=== PATIENT | female | born 1975 | race Caucasian/White ===

== ENCOUNTER 2019-10-18 17:32 | Emergency (ER) | payer OTHER, SELFPAY ==
[2019-10-18 17:49] VITALS: BP 132/79; PULSE 92; RESP 16; TEMP 37.1; O2SAT 100
--- NOTE | 2019-10-18 18:02 | ED.WOUNDLAC ---
HPI - Wound/Laceration General Chief Complaint: Wound/Laceration Stated Complaint: right toe injury History of Present Illness HPI narrative: This is a 44 year old female that comes in because she dropped a knife on her foot and she is not for sure if she is going to need stitches or not. Patient foot currently is not having any bleeding . Patient states that she dropped the knife 1 hour ago and she want to make sure that it is taken care of due to know she had beef blood inside of her and she wants to make sure that she does not get a infection Related Data Home Medications Medication Instructions Recorded Confirmed bupropion HCl 300 mg PO DAILY 10/18/19 10/18/19 fluticasone propionate 2 spray INTRANASAL DAILY 10/18/19 10/18/19 lamotrigine 100 mg BID 10/18/19 10/18/19 lisinopril-hydrochlorothiazide 1 tablet DAILY 10/18/19 10/18/19 Allergies Allergy/AdvReac Type Severity Reaction Status Date / Time adhesive Allergy Mild Rash Verified 10/18/19 18:14 Cat Dander Allergy Unknown Watery Eye Uncoded 10/18/19 17:51 Review of Systems Review of Systems: Narrative: CONSTITUTIONAL: Denies fever, chills, or sweats. EYES: Denies visual changes, redness, or discharge. ENT: Denies rhinorrhea, congestion, sore throat, or otalgia. CARDIOVASCULAR:Denies chest pain, palpitations, or edema. RESPIRATORY: Denies cough or dyspnea. GASTROINTESTINAL: Denies abdominal pain, nausea, vomiting, or diarrhea. GENITOURINARY: Denies dysuria or hematuria. SKIN:[Denies rash or itching. laceration of of the base of right foot. MUSCULOSKELETAL:Denies back pain, joint pain, or myalgia. NEUROLOGIC: Denies headache, numbness, or weakness. PSYCHIATRIC:Denies anxiety or depression PMFSH Social History Social History Gender identity (if verbalized by the patient): Female Comments At time as signature, I have reviewed and agree with nursing past medical, social, surgical and family history. Please see nursing chart for further information. There is no relevant family history pertinent to the presenting complaint. Exam Narrative: Exam Narrative: GENERAL:Well-appearing, well-nourished, and in no acute distress. HEAD:Normocephalic, atraumatic. EYES: PERRLA and EOMI. ENT: Nares clear, no rhinorrhea or epistaxis. Mucous membranes moist. NECK: Supple. CHEST: Clear to auscultation. No respiratory distress. HEART: Regular rate and rhythm. No murmur heard. Normal peripheral pulses. ABDOMEN: Soft, nontender, nondistended, normal active bowel sounds. EXTREMITIES: Normal range of motion. No edema. SKIN: Warm, dry, no rash. laceration approx 1 cm at the base of the right foot with no width noted no bleeding NEURO: No focal deficits. Alert and oriented x3. Course Vital Signs Vital signs: Vital Signs Temperature 98.7 F 10/18/19 17:49 Pulse Rate 92 10/18/19 17:49 Respiratory Rate 16 10/18/19 17:49 Blood Pressure 132/79 10/18/19 17:49 Pulse Oximetry 100 10/18/19 17:49 Temperature 98.7 F 10/18/19 17:49 Pulse Rate 92 10/18/19 17:49 Respiratory Rate 16 10/18/19 17:49 Blood Pressure 132/79 10/18/19 17:49 Pulse Oximetry 100 10/18/19 17:49 Procedures Laceration Laceration 1: Date: 10/18/19 Site: lower extremity Side (If applicable): right Size (cm): 1 Description: linear ====== Skin Level ====== Skin layer closed with: dermabond ====== Subcutaneous Layer ====== ====== Muscle Layer ====== ====== Tendon Layer ====== Dressing: Patient tolerated well and no bleeding noted. Discharge Plan Discharge Clinical Impression: Laceration Patient Disposition: Home, Self-Care Condition: Stable Instructions: Antibiotic Form, Laceration (ED), Puncture Wound in the Foot (ED) Additional Instructions: Do not get you wound wet for 48 hours or 2 days. Please make sure you take all the medication that was ordered for you follow the direction on the me
[2019-10-18] MEDS: TETANUS,DIPHTHERIA,AC PERTUSSIS ADULT (0.5 ML) BOOSTRIX IM (18:07)
== END 2019-10-18 18:23 | disposition home or self-care (01) ==
PROVIDERS: Emergency Provider Nurse Practitioner Family; PCP Family Medicine
DX: S91.311A Laceration without foreign body, right foot, initial encounter (principal); W26.0XXA Contact with knife, initial encounter; Z23 Encounter for immunization
CPT/HCPCS: 12001; 90471; 90715; 99213; G0463

== ENCOUNTER 2020-03-25 17:57 | Emergency (ER) | payer OTHER, SELFPAY ==
[2020-03-25 18:11] VITALS: BP 128/80; PULSE 99; RESP 20; TEMP 37.2; O2SAT 99
--- NOTE | 2020-03-25 18:36 | ED.WOUNDLAC ---
HPI - Wound/Laceration General Chief Complaint: Wound/Laceration Stated Complaint: Head injury Time Seen by Provider: 03/25/20 18:04 Source: patient Mode of arrival: ambulatory Limitations: no limitations History of Present Illness HPI narrative: 45-year-old female presents to [facility] with complaints of laceration to her scalp which occurred 1 hour ago. Patient reports that she was bending over picking up something off of the ground when she stood back up hitting her head on a concrete countertop. Patient reports that her tetanus shot was within the past 5 years. Patient denies loss of consciousness, blurred vision or vomiting. Patient does complain of mild headache. Onset (ago): hour(s) (1) Location: scalp Patient tetanus UTD: Yes Context: accidental Associated symptoms: pain Related Data Home Medications Medication Instructions Recorded Confirmed bupropion HCl 300 mg PO DAILY 10/18/19 03/25/20 fluticasone propionate 2 spray INTRANASAL DAILY 10/18/19 03/25/20 lamotrigine 100 mg BID 10/18/19 03/25/20 hydrochlorothiazide 12.5 mg PO DAILY 03/25/20 03/25/20 latanoprost 1 drp OPHTHALMIC (EYE) DAILY 03/25/20 03/25/20 lisinopril 10 mg PO DAILY 03/25/20 03/25/20 omeprazole 20 mg PO DAILY 03/25/20 03/25/20 Allergies Allergy/AdvReac Type Severity Reaction Status Date / Time adhesive Allergy Mild Rash Verified 03/25/20 18:24 Cat Dander Allergy Unknown Watery Eye Uncoded 10/18/19 17:51 Review of Systems Review of Systems: All systems reviewed & are unremarkable except as noted in HPI and below Constitutional: Constitutional: Denies chills, Denies fever(s) and Denies weakness Eyes: Eyes: Denies change in vision and Denies photophobia Respiratory: Respiratory: Denies cough and Denies dyspnea Gastrointestinal: Gastrointestinal: Denies abdominal pain, Denies diarrhea and Denies vomiting Integumentary/Breasts: Comments: Laceration to scalp Neurologic: Denies vertigo, Denies syncope, Reports headache(s), Denies focal weakness, Denies numbness and Denies weakness PMFSH Social History Social History Gender identity (if verbalized by the patient): Female Exam Const: General: healthy appearing, no acute distress and alert Orientation/consciousness: patient oriented x3 Eyes: Conjunctivae: conjunctivae normal Pupils: Equal, round and reactive pupils present EOM: EOMs intact bilaterally Direct Ophthalmoscopy: No photophobia Neck: Neck: normal visual inspection Resp: Effort & Inspection: normal respiratory effort Auscultation: clear to auscultation bilaterally Cardio: Rate: regular rate, not bradycardic and not tachycardic Rhythm: regular rhythm and regular rhythm Skin: General skin exam: normal color, no jaundice and no pallor Rashes: no rashes Other: 1 cm superficial laceration noted to left side of scalp. There is scant amount of bleeding noted. There is no gaping laceration, swelling, bruising, erythema, signs of infection or necrotic tissue noted. Neuro: General: patient oriented x3, moves all extremities and no meningeal signs Speech: normal speech Gait exam (Neuro): Normal gait present Extrem: General: normal to inspection Psych: Mental Status: mental status grossly normal Affect: normal affect Attitude: cooperative Thought content: Yes Normal thought content present Course Vital Signs Vital signs: Vital Signs Temperature 37.2 C 03/25/20 18:11 Pulse Rate 99 03/25/20 18:11 Respiratory Rate 03/25/20 18:11 Blood Pressure 128/80 03/25/20 18:11 Pulse Oximetry 99 03/25/20 18:11 Temperature 37.2 C 03/25/20 18:11 Pulse Rate 99 03/25/20 18:11 Respiratory Rate 03/25/20 18:11 Blood Pressure 128/80 03/25/20 18:11 Pulse Oximetry 99 03/25/20 18:11 Procedures Laceration Laceration 1: Date: 03/25/20 Time: 18:39 Site: scalp (left side) Side (If applicable): left Size (cm)
== END 2020-03-25 18:46 | disposition home or self-care (01) ==
PROVIDERS: Emergency Provider Nurse Practitioner Family; PCP Family Medicine
DX: S01.01XA Laceration without foreign body of scalp, initial encounter (principal); W22.8XXA Striking against or struck by other objects, initial encounter
CPT/HCPCS: 12001; 99212; G0463

== ENCOUNTER 2020-03-31 16:14 | Emergency (ER) | payer OTHER, SELFPAY ==
--- NOTE | 2020-03-31 16:17 | ED.WOUNDLAC ---
HPI - Wound/Laceration General Chief Complaint: Wound/Laceration Stated Complaint: staple removal Time Seen by Provider: 03/31/20 16:20 Source: patient and RN notes reviewed Mode of arrival: ambulatory Limitations: no limitations History of Present Illness HPI narrative: Referral female presents for staple removal. 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 Reports she had 1 staple placed. She denies any complications, bleeding, irritation, redness, pain, drainage. Denies headache, nausea, vomiting, vision disturbance. Related Data Home Medications Medication Instructions Recorded Confirmed bupropion HCl 300 mg PO DAILY 10/18/19 03/25/20 fluticasone propionate 2 spray INTRANASAL DAILY 10/18/19 03/25/20 lamotrigine 100 mg BID 10/18/19 03/25/20 hydrochlorothiazide 12.5 mg PO DAILY 03/25/20 03/25/20 latanoprost 1 drp OPHTHALMIC (EYE) DAILY 03/25/20 03/25/20 lisinopril 10 mg PO DAILY 03/25/20 03/25/20 omeprazole 20 mg PO DAILY 03/25/20 03/25/20 Allergies Allergy/AdvReac Type Severity Reaction Status Date / Time adhesive Allergy Mild Rash Verified 03/25/20 18:24 Cat Dander Allergy Unknown Watery Eye Uncoded 10/18/19 17:51 Review of Systems Review of Systems: Narrative: CONSTITUTIONAL: Denies malaise, chills, sweats, or fever. EYES: Denies visual changes, SKIN: Reports stable on the top of her head NEUROLOGIC: Denies headache. All systems reviewed & are unremarkable except as noted in HPI and below PMFSH Social History Social History Gender identity (if verbalized by the patient): Female Comments At time of signature, agree with nursing past medical, surgical, social and family history. There is no relevant family history pertinent to the presenting complaint Exam Narrative: Exam Narrative: GENERAL: Well-appearing, well-nourished, and in no acute distress. HEAD: Normocephalic. Intact staple noted to the superior central parietal area EYES: PERRLA, conjunctivae clear, and EOMI. NECK: Supple. CHEST: No respiratory distress. Speaks in full sentences. HEART: Regular rate and rhythm. SKIN: Warm, dry, no rash. Intact staple noted to the superior central parietal area without surrounding erythema, edema, induration, no tenderness, wound is very well approximated NEURO: Alert and oriented x3. PSYCH: Normal mood and affect Course Course Emergency Course: Patient is aware of diagnosis, understands and agrees to treatment plan. Anticipatory guidance given. Patient agrees to follow-up as directed and is aware of reasons to seek care at the emergency department. Portions of this record may have been created with voice recognition software Vital Signs Vital signs: Vital Signs Temperature 97.9 F 03/31/20 16:21 Pulse Rate 91 03/31/20 16:21 Respiratory Rate 20 03/31/20 16:21 Blood Pressure 124/77 03/31/20 16:21 Pulse Oximetry 99 03/31/20 16:21 Temperature 97.9 F 03/31/20 16:21 Pulse Rate 91 03/31/20 16:21 Respiratory Rate 20 03/31/20 16:21 Blood Pressure 124/77 03/31/20 16:21 Pulse Oximetry 99 03/31/20 16:21 Reviewed. MDM - Wound/Laceration MDM Narrative Medical decision making narrative: Verbal consent was obtained. Wound well approximated, no erythema, induration, or discharge noted. 1 staple completely removed in a sterile fashion. Patient tolerated procedure well, no complications. Patient advised to look for and return for any signs of infection such as redness, swelling, discharge, or worsening pain. Critical Care Time Critical Care Time Critical Care Time: No Discharge Plan Discharge Clinical Impression: Encounter for staple removal Patient Disposition: Home, Self-Care Condition: Stable Instructions: Staple Care (ED) Additional Instructions: AFTER the staple is removed: Clean your wound as directed. Carefully wash your wo
[2020-03-31 16:21] VITALS: BP 124/77; PULSE 91; RESP 20; TEMP 36.6; O2SAT 99
== END 2020-03-31 16:33 | disposition home or self-care (01) ==
PROVIDERS: Emergency Provider Nurse Practitioner; PCP Family Medicine
DX: S01.01XD Laceration without foreign body of scalp, subsequent encounter (principal); W22.09XD Striking against other stationary object, subsequent encounter; Z86.73 Personal history of transient ischemic attack (TIA), and cerebral infarction without residual deficits; E78.00 Pure hypercholesterolemia, unspecified; I10 Essential (primary) hypertension; K21.9 Gastro-esophageal reflux disease without esophagitis; M19.90 Unspecified osteoarthritis, unspecified site; F31.9 Bipolar disorder, unspecified
CPT/HCPCS: 99211; G0463

== ENCOUNTER 2021-02-07 12:30 | Outpatient (RCR) | payer OTHER, SELFPAY ==
--- NOTE | 2020-12-31 15:53 | PTOPEVAL ---
PHYSICAL THERAPY EVALUATION AND PLAN OF CARE 12-31-20 Thank you for referring Brianda Mahan to [facility] for the diagnosis of lumbago/back pain. She is scheduled to be seen for therapy? 1-2 x/week for 5 weeks. Please review, sign, date and return this plan of care RIVER. I agree with and certify that the following plan of care is medically necessary. Referring Physician Date Attending Provider: MARLEY Avilez PT Outpatient Evaluation Document 12/31/20 14:56 KYMBERLY (Rec: 12/31/20 15:53 KYMBERLY [id number]) Past Medical History Neurological History Hx Migraine Yes: 1-2x/month, last half to all day Hx Transient Ischemic Attacks (TIA) Yes Cardiovascular History Hx Hypertension Yes: meds Respiratory History Hx Respiratory Disorders No Significant History Gastrointestinal History Hx Appendectomy Yes Hx Gastroesophageal Reflux Disease Yes Genitourinary History Hx Genitourinary Disorders No Significant History Musculoskeletal History Hx Arthritis Yes: back Hx Back Pain Yes Hx Fractures Yes: right foot Hx Orthopedic Surgery Yes: right 3rd toe and right heel Hx Other Musculoskeletal Disorders Yes: cervical pain and stenosis Hematological History Hx Hematological Disorders No Significant History Endocrine History Hx Endocrine Disorders No Significant History HEENT History Hx HEENT Disorders No Significant History Integumentary History Hx Skin Disorders No Significant History Reproductive History Hx Section Yes: x 3 Hx Other Reproductive Disorders Yes: ovary removed Psychosocial History Hx Bipolar Disorder Yes Hx Depression Yes Pain History History of Any Previous or Ongoing No Significant History Instance of Pain Anesthesia History Hx Anesthesia Reactions No Significant History Other History Hx Other Medical Conditions Yes: have had covid vaccine Evaluation Information Problem Diagnosis low back pain Onset one year Subjective Information have been going to pain Query Text:As Reported By Patient/ management for back pain, have Family had 3 rounds of injections-- first 2 sets helped pain and last one, did not help pain; told her to try PT, then may have to refer to surgeon; Diagnostic Tests MRI For This Problem Yes: years ago--per pt:disc problems Prior Level of Function Activity Level (Last 3 Months) 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
--- NOTE | 2021-02-07 13:20 | PTOPEVAL ---
PHYSICAL THERAPY DISCHARGE 02-07-21 Refer to the clinical summary below, for her status today, compared to the initial evaluation. The goals were partially achieved. Discharge PT services. Thank you for referring Brianda Mahan to [facility] Please review, sign, date and return this discharge RIVER. I agree with and certify that the following plan of care is medically necessary. Referring Physician Date Attending Provider: MARLEY Avilez Document 02/07/21 12:30 KYMBERLY (Rec: 02/07/21 13:20 KYMBERLY [id number]) Assessment Status Discharge Subjective Information Brianda reports: back is doing Query Text:As Reported By Patient/ better; if hold trunk tight Family and not twist pain is better; doing all the exercises at home; agree to discharge from PT. Pain Assessment Timing of Pain Assessment Timing of Pain Assessment Assessment Pain Scale Pain Scale Used Numeric (1 - 10) Self Report Pain Assessment Bilateral Spine, Lumbar Reported Pain Level 0 Pain Description Aching Radicular Pain Location achey if stand too long; Pain Frequency Chronic,Intermittent Other Pain Description jabs sometimes when walking or roll over in bed, last few seconds only Lowest Pain Intensity 0 Greatest Pain Intensity 2 Pain Aggravating Factors Walking Other Pain Aggravating Factors sometimes when walking; standing Additional Pain Comments sleep on couch, hurts back- son jumps on the couch on her sometimes; Pain Score Pain Score 0: Self Report Additional Pain Score Comments Oswestry self assessment functional score of 12% limitation in activity level; educated and performed log rolling to get up from supine position; have home stim unit, used a few times and it helps; have problems with her son jumping on her, playing rough; and when pt sleeping, he comes in and sleeps with her- kicking her in back, rolling onto her; she has to lift, pull him out of bed to return to his own bed. Interventions Used Interventions Used By Clinicians Education Pain Relief Interventions Used By Checo Morton
== END 2021-02-09 15:24 | disposition home or self-care (01) ==
LOC: ANHPT 12:30
PROVIDERS: PCP Family Medicine; Visit Provider Nurse Practitioner Family
DX: M54.5 Low back pain (principal)
CPT/HCPCS: 97110; 97140; 97161

== ENCOUNTER 2021-06-05 15:27 | Emergency (ER) | payer OTHER, SELFPAY ==
[2021-06-05 15:36] VITALS: BP 118/49; PULSE 90; RESP 18; TEMP 36.9; O2SAT 99
--- NOTE | 2021-06-05 15:43 | ED.EYEPROB ---
HPI - Eye Problem General Chief complaint: Eye Problems Stated complaint: Lt Eye Irritation Time Seen by Provider: 06/05/21 15:44 Source: patient, RN notes reviewed and old records reviewed Mode of arrival: ambulatory Limitations: no limitations History of Present Illness HPI Narrative: 46-year-old female presents to the [facility] with complaints of left eye redness and drainage, crusted over this morning. Does not wear contact lenses. States that she does wear glasses. Denies any trauma. Denies change in vision or blurry vision. No sinus symptoms. No fevers. MD chief complaint: eye redness Related Data Home Medications Medication Instructions Recorded Confirmed bupropion HCl 300 mg PO DAILY 10/18/19 06/05/21 lamotrigine 100 mg BID 10/18/19 06/05/21 hydrochlorothiazide 12.5 mg PO DAILY 03/25/20 06/05/21 lisinopril 10 mg PO DAILY 03/25/20 06/05/21 omeprazole 20 mg PO DAILY 03/25/20 06/05/21 Allergies Allergy/AdvReac Type Severity Reaction Status Date / Time adhesive Allergy Mild Rash Verified 06/05/21 15:29 Cat Dander Allergy Mild Watery Eye Uncoded 06/05/21 15:29 Review of Systems Review of Systems: All systems reviewed & are unremarkable except as noted in HPI and below Constitutional: Constitutional: Reports no additional constitutional complaints, Denies chills and Denies fever(s) Eyes: Eyes: Reports as per HPI, Denies blind spots, Denies blurry vision, Denies change in vision, Reports eye discharge, Reports itchy eyes, Reports requires corrective lenses (Does not wear contact lenses) and Denies photophobia ENT: Reports system reviewed and no additional complaints, except as documented Cardiovascular: Cardiovascular: Reports no additional cardiovascular complaints Respiratory: Respiratory: Reports no additional respiratory complaints Musculoskeletal: Musculoskeletal: Reports no additional musculoskeletal complaints Integumentary/Breasts: Skin/Breast: Reports system reviewed and no additional complaints, except as docu Neurologic: Reports system reviewed and no additional complaints, except as documented Psychiatric: Psychiatric: Reports no additional psychiatric complaints Allergic/Immunologic: Allergic/Immunologic: Reports no additional allergic/immunologic complaints PMFSH Past Medical History Medical History (Updated 06/05/21 @ 17:01 by Keila Gonzales) Depression H/O gastroesophageal reflux (GERD) Hypertension Social History Social History Gender identity (if verbalized by the patient): Female Comments At the time of my signature, I reviewed and agree with the nursing past medical, surgical, social, and family history. There is no relevant family history pertinent to the patient complaint. Exam Const: General: healthy appearing, no acute distress and alert Nutritional Appearance: well nourished Orientation/consciousness: patient oriented x3 Limitations: no limitations HENMT: Head: normal to inspection Ears: external ears normal, TM's normal bilaterally and EAC's normal Eyes: Conjunctivae: conjunctival abnormality left conjunctival injection localized (Lower lid) and discharge mucoid; without subconjunctival hemmorhages Pupils: Equal, round and reactive pupils present EOM: EOMs intact bilaterally Direct Ophthalmoscopy: no photophobia Neck: Neck: normal visual inspection, no lymphadenopathy and no meningeal signs Chest: Chest palpation & inspection: normal inspection of the chest Resp: Effort & Inspection: normal respiratory effort and no use of accessory muscles Auscultation: clear to auscultation bilaterally, no crackles, no rales, no rhonchi and no wheezes Cardio: Rate: regular rate Rhythm: regular rhythm Back/Spine/Pelvis: Back: no CVA tenderness Skin: General skin exam: normal color Rashes: no rashes Wounds: no wounds Neuro: General: patient oriented x3, moves all extremities, no meningeal signs and no focal motor defi
== END 2021-06-05 15:55 | disposition home or self-care (01) ==
PROVIDERS: Emergency Provider Nurse Practitioner; PCP Family Medicine
DX: H10.32 Unspecified acute conjunctivitis, left eye (principal); I10 Essential (primary) hypertension
CPT/HCPCS: 99213; G0463

== ENCOUNTER 2021-07-21 16:49 | Emergency (ER) | payer OTHER, SELFPAY ==
[2021-07-21 16:59] VITALS: BP 125/65; PULSE 85; RESP 16; TEMP 36.8; O2SAT 100
--- NOTE | 2021-07-21 17:39 | ED.EAR ---
HPI - Ear Problem General Chief complaint: Upper Respiratory Infection Stated complaint: EAR/NOSE/THROAT Source: patient and RN notes reviewed Mode of arrival: ambulatory History of Present Illness HPI Narrative: This is a 46-year-old female who presents to urgent care with complaints of right ear pain states she has had for approximately 1 week she describes the pain as ringing and congestion to her right ear. She did nothing at home to relieve her symptoms. The patient denies SOB, CP, decreased hearing, foreign body, ear discahrge, palpitation, extremity numbness, lightheadedness, dizziness, constipation, diarrhea, chills, or fever. Related Data Home Medications Medication Instructions Recorded Confirmed bupropion HCl 300 mg PO DAILY 10/18/19 06/05/21 lamotrigine 100 mg BID 10/18/19 06/05/21 hydrochlorothiazide 12.5 mg PO DAILY 03/25/20 06/05/21 lisinopril 10 mg PO DAILY 03/25/20 06/05/21 omeprazole 20 mg PO DAILY 03/25/20 06/05/21 Allergies Allergy/AdvReac Type Severity Reaction Status Date / Time adhesive Allergy Mild Rash Verified 06/05/21 15:29 Cat Dander Allergy Mild Watery Eye Uncoded 06/05/21 15:29 Review of Systems Review of Systems: A 14 organ system Review of Systems was performed and pertinent positives included in the HPI, otherwise remaining ROS is negative. [facility] Past Medical History Medical History Depression H/O gastroesophageal reflux (GERD) Hypertension Social History Social History Gender identity (if verbalized by the patient): Female Exam Narrative: GENERAL: This is a well-nourished, well-developed patient, in no apparent distress. HEAD: normocephalic, atraumatic. EYES: PERRL. Sclera clear/white. Vision is grossly intact. EARS: External ears normal, auditory canals and, TMs normal edema with erythematous without perforation. Hearing grossly intact. NOSE: External nose normal with no obvious nasal discharge, nares without redness, no rhinorrhea. THROAT: Mucous membranes moist, posterior pharynx clear. NECK: Neck supple, non-tender without lymphadenopathy, masses or thyromegaly. CARDIOVASCULAR: Regular rate and rhythm without murmurs, gallops, or rubs. RESPIRATORY: Clear to auscultation. Breath sounds equal bilaterally. No wheezes, rales, or rhonchi. GASTROINTESTINAL: Abdomen soft, non-tender, nondistended. Bowel sounds are active. No hepato-splenomegaly, or palpable masses. No guarding. SKIN: warm, intact with no suspicious lesions or rash, good texture and turgor. NEURO: awake, alert, and oriented to person, place and time. There were no obvious focal neurologic abnormalities. Steady gait EXTREMITIES: Normal range of motion. No edema. No calf tenderness. Negative Homans sign bilaterally. BACK: Nontender without deformity or crepitance. No flank tenderness. Course Course Emergency Course: Patient treated for otitis media along with otitis externa with Augmentin and ciprofloxacin eardrops Level of Care: Express Care Visit Vital Signs Vital signs: Vital Signs Temperature 98.2 F 07/21/21 16:59 Pulse Rate 85 07/21/21 16:59 Respiratory Rate 16 07/21/21 16:59 Blood Pressure 125/65 07/21/21 16:59 Pulse Oximetry 100 07/21/21 16:59 Temperature 98.2 F 07/21/21 16:59 Pulse Rate 85 07/21/21 16:59 Respiratory Rate 16 07/21/21 16:59 Blood Pressure 125/65 07/21/21 16:59 Pulse Oximetry 100 07/21/21 16:59 Medical Decision Making Differential Diagnosis Differential Diagnosis: Otitis media versus otitis externa versus foreign body object Vital Signs Vital Signs: Vital Signs Temperature 98.2 F 07/21/21 16:59 Pulse Rate 85 07/21/21 16:59 Respiratory Rate 16 07/21/21 16:59 Blood Pressure 125/65 07/21/21 16:59 Pulse Oximetry 100 07/21/21 16:59 Temperature 98.2 F 07/21/21 16:59 Pulse Rate 85 07/21/21 16:59 Respiratory Ra
== END 2021-07-21 17:40 | disposition home or self-care (01) ==
PROVIDERS: Emergency Provider Nurse Practitioner; PCP Family Medicine
DX: H66.90 Otitis media, unspecified, unspecified ear (principal); H60.501 Unspecified acute noninfective otitis externa, right ear; K21.9 Gastro-esophageal reflux disease without esophagitis; I10 Essential (primary) hypertension; F32.A Depression, unspecified
CPT/HCPCS: 99213; G0463

== ENCOUNTER 2021-07-31 13:16 | Emergency (ER) | payer OTHER, SELFPAY ==
--- NOTE | ~2021-07-31 | CT_ITS ---
EXAMINATION: CT brain wo con DATE: 07/31/2021 13:54 INDICATION: Head injury. Headache. TECHNIQUE: Computed tomography (CT) of the head was performed without intravenous contrast. The mA wa s adjusted according to patient size. Iterative reconstruction technique was employed. The dose-lengt h product was 529.67 mGy-cm. COMPARISON: None FINDINGS: There is no intracranial hemorrhage, acute infarction, or abnormal intracranial mass lesion . The ventricles are normal in size. There is mild mucosal thickening in the ethmoid sinuses. The mas toid air cells are normal. The orbits are normal. IMPRESSION: 1. Normal brain. Reviewed, dictated and finalized at location A. CUTTER IMPRESSION: 1. Normal brain.
[2021-07-31 13:22] VITALS: BP 127/73; PULSE 106; RESP 20; TEMP 37; O2SAT 99
[2021-07-31] MEDS: KETOROLAC (*BKC) 60 MG/2 ML VIAL IM (14:55)
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
== END 2021-07-31 16:19 | disposition home or self-care (01) ==
PROVIDERS: Emergency Provider Emergency Medicine; PCP Family Medicine
DX: S00.83XA Contusion of other part of head, initial encounter (principal); R51.9 Headache, unspecified; I10 Essential (primary) hypertension; K21.9 Gastro-esophageal reflux disease without esophagitis; F32.A Depression, unspecified; Z97.5 Presence of (intrauterine) contraceptive device; W20.8XXA Other cause of strike by thrown, projected or falling object, initial encounter
CPT/HCPCS: 70450; 96372; 99284; J1100; J1885

== ENCOUNTER 2021-08-06 09:01 | Outpatient (CLI) | payer OTHER, SELFPAY ==
[2021-08-06 09:40] LABS: Basophils Percent Auto 0.3 % (0.2-1.2); Eosinophils Absolute Auto 0.6 K/mm3 (0-0.3); Eosinophils Percent Auto 9.3 % (0-4.4); Hematocrit 43.2 % (37.0-47.0); Immature Granulocyte Absolute 0.02 K/mm3 (0.00-0.031); Immature Granulocyte Percent A 0.3 % (0-0.5); Lymphocytes Absolute Auto 2.03 K/mm3 (0.9-3.2); Lymphocytes Percent Auto 33.6 % (18.3-44.2); Mean Corpuscular HGB Conc 32.4 g/dl (32-36); Mean Corpuscular Volume 92.7 fl (80-100); Mean Platelet Volume 10.1 fl (7.4-10.4); Monocytes Absolute Auto 0.5 K/mm3 (0.1-0.6); Monocytes Percent Auto 8.8 % (2.6-8.5); Neutrophils Absolute Auto 2.9 K/mm3 (1.3-6.7); Neutrophils Percent Auto 47.7 % (45.5-73.1); Platelet Count Result 283 k/mm3 (150-375); Red Blood Count 4.66 M/mm3 (4.2-5.4)
[2021-08-06 10:06] LABS: Iron 99 ug/dL (37-170)
[2021-08-06 10:15] LABS: Percent Iron Saturation 33 % (20-50)
[2021-08-06 10:17] LABS: Thyroid Stimulating Hormone 0.832 uIU/mL (0.465-4.680)
[2021-08-06 10:24] LABS: Free T4 Free Thyroxine 0.89 ng/mL (0.78-2.19)
[2021-08-09 12:03] LABS: FSH 71.5 mIU/mL (***); LH 57.6 mIU/mL (***); Progesterone 0.6 ng/mL (***); Prolactin 8.7 ng/mL (***); Triiodothyronine T3 Free 3.9 pg/mL (2.3-4.2)
[2021-08-09 15:59] LABS: DHEA-Sulfate 224 mcg/dL (19-231); Thyroid Peroxidase Antibodies <1 IU/mL (<9)
[2021-08-10 05:57] LABS: Insulin Level Total 4.4 uIU/mL (<=19.6)
[2021-08-10 08:43] LABS: Testosterone Free 2.4 pg/mL (0.1-6.4); Testosterone Total 21 ng/dL (2-45)
[2021-08-11 23:42] LABS: Estradiol, Ultrasensitive <2 pg/mL
[2021-08-12 17:55] LABS: Thyroid Stimulating Immunoglob <89 % baseline (<140)
== END 2021-08-06 09:02 | disposition home or self-care (01) ==
PROVIDERS: PCP Family Medicine; Visit Provider Internal Medicine Endocrinology, Diabetes & Metabolism
DX: R94.6 Abnormal results of thyroid function studies (principal); R53.83 Other fatigue; N92.6 Irregular menstruation, unspecified
CPT/HCPCS: 36415; 82607; 82627; 82670; 82728; 82746; 83001; 83002; 83525; 83540; 83550; 84144; 84146; 84402; 84403; 84439; 84443; 84445; 84481; 85025; 86376

== ENCOUNTER 2022-04-01 08:02 | Outpatient (CLI) | payer OTHER, SELFPAY ==
[2022-04-01 09:03] LABS: Alanine Aminotransferase 20 U/L (6-35); Alkaline Phosphatase 67 U/L (38-126); Anion Gap 6 mmol/L (8-16); Aspartate Amino Transferase 24 U/L (14-36); Bilirubin,Total 0.2 mg/dL (0.2-1.3); Blood Urea Nitrogen 17 mg/dL (7-17); Calcium 8.5 mg/dL (8.4-10.2); Carbon Dioxide 25 mmol/L (22-30); Chloride 109 mmol/L (98-107); Estimated Glomerular Filt Rate > 60; Glucose 95 mg/dL (65-110); Potassium 4.1 mmol/L (3.4-5.0); Sodium 140 mmol/L (137-145)
[2022-04-01 09:31] LABS: Thyroid Stimulating Hormone 0.887 uIU/mL (0.465-4.680)
[2022-04-01 09:55] LABS: Free T4 Free Thyroxine 0.91 ng/mL (0.78-2.19)
[2022-04-04 01:21] LABS: Thyroid Peroxidase Antibodies <1 IU/mL (<9)
[2022-04-04 12:45] LABS: Triiodothyronine T3 Free 2.8 pg/mL (2.3-4.2)
== END 2022-04-01 08:03 | disposition home or self-care (01) ==
LOC: ANHLAB 08:05
PROVIDERS: PCP Family Medicine; Visit Provider Nurse Practitioner
DX: E04.1 Nontoxic single thyroid nodule (principal)
CPT/HCPCS: 36415; 80053; 84439; 84443; 84481; 86376

== ENCOUNTER 2022-05-30 17:36 | Emergency (ER) | payer OTHER, SELFPAY ==
[2022-05-30 17:45] VITALS: BP 115/69; PULSE 90; RESP 16; TEMP 36.2; O2SAT 100
--- NOTE | 2022-05-30 18:16 | ED.URI ---
HPI - URI/Sore Throat General Chief Complaint: Upper Respiratory Infection Stated Complaint: E/N/T Time Seen by Provider: 05/30/22 18:16 Source: patient and RN notes reviewed Mode of arrival: ambulatory Limitations: no limitations History of Present Illness HPI Narrative: 47 y/o female presented for c/o sore throat since last night. States she completed a course of antibiotics for sinus infection last week but continues to cough which worsens the throat pain. Using chloraseptic spray without relief. Denies shortness of breath, wheezing, nausea, vomiting, diarrhea, fevers or chills. MD elicited complaint: cough Related Data Home Medications Medication Instructions Recorded Confirmed lamotrigine 100 mg tablet 100 mg BID 10/18/19 05/30/22 hydrochlorothiazide 12.5 mg capsule 12.5 mg PO DAILY 03/25/20 05/30/22 lisinopril 10 mg tablet 10 mg PO DAILY 03/25/20 05/30/22 latanoprost 0.005 % eye drops 1 drp EACH EYE HS 07/21/21 05/30/22 sumatriptan succinate 50 mg tablet 50 mg PO DIRECTED 07/31/21 05/30/22 fluticasone propionate 50 1 spray intranasal DIRECTED 05/30/22 05/30/22 mcg/actuation nasal spray,suspension hydroxyzine pamoate 25 mg capsule 25 mg DAILY 05/30/22 05/30/22 sertraline 50 mg tablet 50 mg DAILY 05/30/22 05/30/22 Allergies Allergy/AdvReac Type Severity Reaction Status Date / Time adhesive Allergy Mild Rash Verified 05/30/22 17:57 Cat Dander Allergy Mild Watery Eye Uncoded 05/30/22 17:57 Review of Systems Review of Systems: ROS per HPI PMFSH Past Medical History Medical History Depression H/O gastroesophageal reflux (GERD) Hypertension Social History Social History Gender identity (if verbalized by the patient): Female Exam Narrative: GENERAL: Ill-appearing, nontoxic EYES: PERRLA, conjunctivae clear ENT: Mucous membranes moist. TMs pearly banks with dull light reflex bilaterally; no tragal tenderness. Oropharynx erythematous without lesions or exudate, no drooling, no hoarseness, no trismus, uvula midline. No tripod positioning, muffled voice, soft palate or pharyngeal wall bulging NECK: Supple. No lymphadenopathy CHEST: Clear to auscultation, breath sounds equal. No wheezing, rhonchi, rales, or stridor. No respiratory distress, speaks in full sentences. HEART: Regular rate and rhythm. No murmur heard. SKIN: Warm, dry, no rash. NEURO: Alert and oriented x3. PSYCH: Normal mood and affect Course Course Emergency Course: Patient is aware of diagnosis, understands and agrees to treatment plan. Anticipatory guidance given. Patient agrees to follow-up as directed and is aware of reasons to seek care at the emergency department. Portions of this record may have been created with voice recognition software Level of Care: Express Care Visit Vital Signs Vital signs: Vital Signs Temperature 97.2 F L 05/30/22 17:45 Pulse Rate 90 05/30/22 17:45 Respiratory Rate 16 05/30/22 17:45 Blood Pressure 115/69 05/30/22 17:45 Pulse Oximetry 100 05/30/22 17:45 Oxygen Delivery Room Air 05/30/22 17:45 Temperature 97.2 F L 05/30/22 17:45 Pulse Rate 90 05/30/22 17:45 Respiratory Rate 16 05/30/22 17:45 Blood Pressure 115/69 05/30/22 17:45 Pulse Oximetry 100 05/30/22 17:45 Oxygen Delivery Room Air 05/30/22 17:45 reviewed MDM - URI/Sore Throat MDM Narrative Medical decision making narrative: Strep negative, results reviewed the patient. Advised supportive measures and signs/symptoms to go to the ER. Pt is appropriate for outpt treatment and f/u. Differential Diagnosis Differential diagnosis: Likely upper respiratory infection, sinusitis, viral infection, bronchitis and pharyngitis Lab Data Labs: Strep Screen Presumptive Negative *(Reference Range: Negative)* Discharge Plan Discharge
== END 2022-05-30 18:29 | disposition home or self-care (01) ==
PROVIDERS: Emergency Provider Nurse Practitioner Family; PCP Family Medicine
DX: J02.9 Acute pharyngitis, unspecified (principal); I10 Essential (primary) hypertension
CPT/HCPCS: 87081; 87880; 99213; G0463

== ENCOUNTER 2022-07-09 11:52 | Emergency (ER) | payer OTHER, SELFPAY ==
[2022-07-09 12:02] VITALS: BP 128/73; PULSE 76; RESP 16; TEMP 36.6; O2SAT 100
--- NOTE | 2022-07-09 12:45 | ED.GENADULT ---
HPI - General Adult General Chief complaint: Wound/Laceration Stated complaint: lacreation hand Source: patient Mode of arrival: ambulatory Limitations: no limitations History of Present Illness HPI narrative: Patient presents for evaluation of skin avulsion injuries to the left wrist that occurred around 1800 last night. She states she cut herself with a mandolin. She had challenged controlling the bleeding for about thirty minutes. She reports some sharp pain in the affected areas without numerical rating. Bleeding is controlled at this time. She denies any fever, chills, purulence from the area. No loss of range of motion. No paresthesias. She is not diabetic. She does not smoke. Last tetanus was in 2019. She is left hand dominant. Related Data Home Medications Medication Instructions Recorded Confirmed lamotrigine 100 mg tablet 100 mg BID 10/18/19 07/09/22 hydrochlorothiazide 12.5 mg capsule 12.5 mg PO DAILY 03/25/20 07/09/22 lisinopril 10 mg tablet 10 mg PO DAILY 03/25/20 07/09/22 latanoprost 0.005 % eye drops 1 drp EACH EYE HS 07/21/21 07/09/22 sumatriptan succinate 50 mg tablet 50 mg PO DIRECTED 07/31/21 07/09/22 hydroxyzine pamoate 25 mg capsule 25 mg DAILY 05/30/22 07/09/22 sertraline 50 mg tablet 50 mg DAILY 05/30/22 07/09/22 Allergies Allergy/AdvReac Type Severity Reaction Status Date / Time adhesive Allergy Mild Rash Verified 07/09/22 12:31 Cat Dander Allergy Mild Watery Eye Uncoded 07/09/22 12:31 Review of Systems Review of Systems: CONSTITUTIONAL: Denies fever, chills, or sweats. EYES: Denies visual changes, redness, or discharge. ENT: Denies rhinorrhea, congestion, sore throat, or otalgia. CARDIOVASCULAR: Denies chest pain, palpitations, or edema. RESPIRATORY: Denies cough or dyspnea. GASTROINTESTINAL: Denies abdominal pain, nausea, vomiting, or diarrhea. GENITOURINARY: Denies dysuria or hematuria. SKIN: Reports skin avulsions x 2 to the left wrist MUSCULOSKELETAL: Denies back pain, joint pain, or myalgia. NEUROLOGIC: Denies headache, numbness, dizziness, or weakness. PSYCHIATRIC: Denies anxiety or depression. [facility] Past Medical History Medical History (Updated 07/09/22 @ 12:55 by MONIE OrtizP, ) Depression H/O gastroesophageal reflux (GERD) Hypertension Surgical History Surgical History No pertinent past surgical history Family History Family History Mother Family history non-contributory Social History Social History Smoking status: Never smoker Substance use: never Gender identity (if verbalized by the patient): Female Spiritual care concerns: No Exam Narrative: GENERAL: Well-appearing, well-nourished, and in no acute distress. HEAD: Normocephalic, atraumatic. EYES: PERRLA and EOMI. ENT: Nares clear, no rhinorrhea or epistaxis. Mucous membranes moist. Oropharynx without tonsillar hypertrophy exudate or other lesions. Bilateral TMs pearly banks nonbulging NECK: Supple. No adenopathy or masses. No carotid bruits or JVD CHEST: Clear to auscultation. No respiratory distress. No wheezes rales or rhonchi HEART: Regular rate and rhythm. No murmur heard. Normal peripheral pulses. ABDOMEN: Soft, nontender, nondistended, normal active bowel sounds. EXTREMITIES: Normal range of motion. No edema. SKIN: Warm, dry, no rash. There is a dry dressing noted to the left wrist which was removed for evaluation. There is a moderate amount of sanguinous drainage shadowing on the dressing. There is a 2 x 3 mm skin avulsion noted to the left wrist and a 8 x 4 mm skin avulsion noted adjacent to that also at the left wrist. Both wound beds are pink and without evidence of infection. There is no active bleeding NEURO: No focal deficits. Alert and oriented x3. PSYCH: Normal mood and affect.
== END 2022-07-09 12:55 | disposition home or self-care (01) ==
PROVIDERS: Emergency Provider Nurse Practitioner; PCP Family Medicine
DX: S61.502A Unspecified open wound of left wrist, initial encounter (principal); W27.4XXA Contact with kitchen utensil, initial encounter; K21.9 Gastro-esophageal reflux disease without esophagitis; I10 Essential (primary) hypertension; F32.A Depression, unspecified
CPT/HCPCS: 99213; G0463

== ENCOUNTER 2022-09-25 17:27 | Emergency (ER) | payer OTHER, SELFPAY ==
[2022-09-25 17:51] VITALS: BP 109/48; PULSE 114; RESP 20; TEMP 37.8; O2SAT 99
--- NOTE | 2022-09-25 18:37 | ED.URI ---
HPI - URI/Sore Throat General Chief Complaint: Upper Respiratory Infection Stated Complaint: Ear/Nose/ Throat History of Present Illness HPI Narrative: 47-year-old female presenting for complaint of sore throat, body aches, fatigue, and states she feels like she is in a fog. Symptoms started today. endorses her son is sick with similar symptoms over last few days. She denies dizziness, tinnitus, nausea, vomiting, fevers or chills. She is not taking anything for symptoms. Related Data Home Medications Medication Instructions Recorded Confirmed lamotrigine 100 mg tablet 100 mg BID 10/18/19 09/25/22 hydrochlorothiazide 12.5 mg capsule 12.5 mg PO DAILY 03/25/20 09/25/22 lisinopril 10 mg tablet 10 mg PO DAILY 03/25/20 09/25/22 latanoprost 0.005 % eye drops 1 drp EACH EYE HS 07/21/21 09/25/22 sumatriptan succinate 50 mg tablet 50 mg PO DIRECTED 07/31/21 09/25/22 hydroxyzine pamoate 25 mg capsule 25 mg DAILY 05/30/22 09/25/22 gabapentin 300 mg capsule 300 mg DIRECTED 09/25/22 09/25/22 Allergies Allergy/AdvReac Type Severity Reaction Status Date / Time adhesive Allergy Mild Rash Verified 07/09/22 12:31 Cat Dander Allergy Mild Watery Eye Uncoded 07/09/22 12:31 Review of Systems Review of Systems: CONSTITUTIONAL: Reports body aches, denies fever, chills, or sweats. EYES: Denies visual changes, redness, or discharge. ENT: Reports sore throat denies rhinorrhea, congestion, or otalgia. CARDIOVASCULAR: Denies chest pain, palpitations, or edema. RESPIRATORY: Denies dyspnea. GASTROINTESTINAL: Denies abdominal pain, nausea, vomiting, or diarrhea. SKIN: Denies rash, itching, or wounds. MUSCULOSKELETAL: Denies back pain, joint pain, or myalgia. [facility] Past Medical History Medical History Depression H/O gastroesophageal reflux (GERD) Hypertension Surgical History Surgical History No pertinent past surgical history Family History Family History Mother Family history non-contributory Social History Social History Smoking status: Never smoker Substance use: never Gender identity (if verbalized by the patient): Female Spiritual care concerns: No Exam Narrative: GENERAL: Ill-appearing, no acute distress. EYES: conjunctivae clear ENT: Mucous membranes moist. TM pearly banks with normal light reflex bilaterally; no tragal tenderness. Oropharynx erythematous. Tonsils enlarged 2+ with exudate. No drooling, no hoarseness, no trismus, uvula midline. No tripod positioning, hot potato voice, or soft palate swelling. NECK: Supple. No lymphadenopathy CHEST: Clear to auscultation, breath sounds equal. No respiratory distress, speaks in full sentences. HEART: Regular rate and rhythm. No murmur heard. SKIN: Warm, dry, no rash. NEURO: Alert and oriented x3. Course Course Emergency Course: Patient is aware of diagnosis, understands and agrees to treatment plan. Anticipatory guidance given. Patient agrees to follow-up as directed and is aware of reasons to seek care at the emergency department. Portions of this record may have been created with voice recognition software Level of Care: Express Care Visit Vital Signs Vital signs: Vital Signs Temperature 100.0 F H 09/25/22 17:51 Pulse Rate 114 H 09/25/22 17:51 Respiratory Rate 20 09/25/22 17:51 Blood Pressure 109/48 L 09/25/22 17:51 Pulse Oximetry 99 09/25/22 17:51 Oxygen Delivery Room Air 09/25/22 17:51 Temperature 100.0 F H 09/25/22 17:51 Pulse Rate 114 H 09/25/22 17:51 Respiratory Rate 20 09/25/22 17:51 Blood Pressure 109/48 L 09/25/22 17:51 Pulse Oximetry 99 09/25/22 17:51 Oxygen Delivery Room Air 09/25/22 17:51 MDM - URI/Sore Throat MDM Narrative Medical decision making narrative:
== END 2022-09-25 18:54 | disposition home or self-care (01) ==
PROVIDERS: Emergency Provider Nurse Practitioner Family; PCP Family Medicine
DX: J02.0 Streptococcal pharyngitis (principal); I10 Essential (primary) hypertension; Z20.822 Contact with and (suspected) exposure to COVID-19
CPT/HCPCS: 87426; 87804; 87880; 99213; C9803; G0463

== ENCOUNTER 2023-03-16 16:36 | Outpatient (CLI) | payer OTHER, SELFPAY ==
--- NOTE | ~2023-03-16 | US_ITS ---
Thyroid ultrasound. Clinical History: Thyroid nodule Findings: Real-time sonography of the thyroid gland was performed. The right lobe measures 3.7 x 1.0 x 1.8 cm. The left lobe measures 3.1 x 1.0 x 1.5 cm. The isthmus is 2 mm in AP diameter. No signific ant thyroid nodule identified. Impression: No significant thyroid nodule identified.. Reviewed, dictated and finalized at location . Impression: No significant thyroid nodule identified..
== END 2023-03-16 16:37 | disposition home or self-care (01) ==
LOC: ANHIMG 16:39
PROVIDERS: PCP Family Medicine; Visit Provider Internal Medicine Endocrinology, Diabetes & Metabolism
DX: E04.1 Nontoxic single thyroid nodule (principal)
CPT/HCPCS: 76536

== ENCOUNTER 2023-03-24 11:10 | Outpatient (CLI) | payer OTHER, SELFPAY ==
[2023-03-24 12:31] LABS: Alanine Aminotransferase 22 U/L (6-35); Albumin Level 4.5 g/dL (3.5-5.1); Alkaline Phosphatase 71 U/L (38-126); Anion Gap 8 mmol/L (8-16); Aspartate Amino Transferase 26 U/L (14-36); Bilirubin,Total 0.4 mg/dL (0.2-1.3); Blood Urea Nitrogen 10 mg/dL (7-17); Calcium 9.1 mg/dL (8.4-10.2); Carbon Dioxide 28 mmol/L (22-30); Chloride 100 mmol/L (98-107); Estimated Glomerular Filt Rate > 60; Glucose 97 mg/dL (65-110); Potassium 3.6 mmol/L (3.4-5.0); Sodium 136 mmol/L (137-145)
[2023-03-24 13:02] LABS: Thyroid Stimulating Hormone 0.766 uIU/mL (0.465-4.680)
[2023-03-24 13:05] LABS: Free T4 Free Thyroxine 1.19 ng/mL (0.78-2.19)
[2023-03-27 04:04] LABS: Thyroid Peroxidase Antibodies <1 IU/mL (<9)
[2023-03-29 05:15] LABS: Triiodothyronine T3 Free 3.6 pg/mL (2.3-4.2)
== END 2023-03-24 11:11 | disposition home or self-care (01) ==
LOC: ANHLAB 11:12
PROVIDERS: PCP Family Medicine; Visit Provider Internal Medicine Endocrinology, Diabetes & Metabolism
DX: E04.1 Nontoxic single thyroid nodule (principal)
CPT/HCPCS: 36415; 80053; 84439; 84443; 84481; 86376

== ENCOUNTER 2023-04-24 17:43 | Emergency (ER) | payer OTHER, SELFPAY ==
[2023-04-24 17:55] VITALS: BP 115/73; PULSE 92; RESP 16; TEMP 37; O2SAT 100
--- NOTE | 2023-04-24 18:21 | ED.GENADULT ---
HPI - General Adult General Chief complaint: Ear Stated complaint: Left Ear Irritation Time Seen by Provider: 04/24/23 18:21 Source: patient, RN notes reviewed and old records reviewed Mode of arrival: ambulatory Limitations: no limitations History of Present Illness HPI narrative: 48-year-old female presents to the [facility] with left ear pain for 2 days. Has had sinus congestion for several days as well. Patient denies any fevers. States whenever she sneezes or blows her nose the pain increases. Has taken DayQuil and NyQuil Treatments prior to arrival: other (Cold medicine) Related Data Home Medications Medication Instructions Recorded Confirmed lamotrigine 100 mg tablet 100 mg BID 10/18/19 04/24/23 hydrochlorothiazide 12.5 mg capsule 12.5 mg PO DAILY 03/25/20 04/24/23 lisinopril 10 mg tablet 10 mg PO DAILY 03/25/20 04/24/23 latanoprost 0.005 % eye drops 1 drp EACH EYE HS 07/21/21 04/24/23 sumatriptan succinate 50 mg tablet 50 mg PO DIRECTED 07/31/21 04/24/23 hydroxyzine pamoate 25 mg capsule 25 mg DAILY 05/30/22 04/24/23 phentermine 37.5 mg tablet mg 04/24/23 Allergies Allergy/AdvReac Type Severity Reaction Status Date / Time adhesive Allergy Mild Rash Verified 04/24/23 18:03 Cat Dander Allergy Mild Watery Eye Uncoded 04/24/23 18:03 Review of Systems Review of Systems: All systems reviewed & are unremarkable except as noted in HPI and below Constitutional: Constitutional: Reports no additional constitutional complaints Eyes: Eyes: Reports no additional eye complaints ENT: Reports as per HPI and Reports otalgia (Left ear) Cardiovascular: Cardiovascular: Reports no additional cardiovascular complaints, Denies chest pain and Denies dyspnea Respiratory: Respiratory: Reports no additional respiratory complaints, Denies chest congestion, Denies cough and Denies dyspnea Gastrointestinal: Gastrointestinal: Reports no additional gastrointestinal complaints, Denies abdominal pain, Denies nausea and Denies vomiting Musculoskeletal: Musculoskeletal: Reports no additional musculoskeletal complaints Integumentary/Breasts: Skin/Breast: Reports system reviewed and no additional complaints, except as docu Neurologic: Reports system reviewed and no additional complaints, except as documented Psychiatric: Psychiatric: Reports no additional psychiatric complaints Allergic/Immunologic: Allergic/Immunologic: Reports no additional allergic/immunologic complaints PMFSH Past Medical History Medical History Depression H/O gastroesophageal reflux (GERD) Hypertension Surgical History Surgical History No pertinent past surgical history Family History Family History Mother Family history non-contributory Social History Social History Smoking status: Never smoker Substance use: never Gender identity (if verbalized by the patient): Female Spiritual care concerns: No Comments At the time of my signature, I reviewed and agree with the nursing past medical, surgical, social, and family history. There is no relevant family history pertinent to the patient complaint. Exam Const: General: cooperative, healthy appearing, comfortable, no acute distress, well developed, alert and well nourished Nutritional Appearance: well nourished Orientation/consciousness: patient oriented x3 Limitations: no limitations HENMT: Head: normal to inspection Ears: hearing grossly normal bilaterally, external ears normal, EAC's normal and TM abnormal bulging on the left, wth effusion serous on the right and erythematous on the left Face/Nose/Sinus: Normal external nose present, Normal nares present, Normal nasal mucous membranes and turbinates present, normal facial exam and face symmetric Face and sinus: normal facial e
== END 2023-04-24 18:30 | disposition home or self-care (01) ==
PROVIDERS: Emergency Provider Nurse Practitioner; PCP Family Medicine
DX: H66.92 Otitis media, unspecified, left ear (principal); K21.9 Gastro-esophageal reflux disease without esophagitis; I10 Essential (primary) hypertension; F32.A Depression, unspecified
CPT/HCPCS: 99213; G0463

== ENCOUNTER 2023-10-14 13:35 | Emergency (ER) | payer OTHER, SELFPAY ==
[2023-10-14 13:45] VITALS: BP 117/65; PULSE 105; RESP 16; TEMP 36.6; O2SAT 100
--- NOTE | 2023-10-14 13:56 | ED.SKABFB ---
HPI - Skin/Abscess/Foreign Bdy General Chief complaint: Extremity Problem,Nontraumatic Stated complaint: Swollen Arm Time Seen by Provider: 10/14/23 13:57 Source: patient and RN notes reviewed Mode of arrival: ambulatory Limitations: dementia History of Present Illness HPI narrative: 48-year-old female presents concern for infected surgical site. She reports she had an orthopedic surgery about 2 weeks ago to her right arm and currently has 2 incision sites with sutures. Reports yesterday she noticed redness along 1 of the incision sites, today the entire incision is red, tender, swollen. Reports she noticed the 2nd incision started to get red and tender. MD complaint: other (Redness) Related Data Home Medications Medication Instructions Recorded Confirmed lamotrigine 100 mg tablet 100 mg BID 10/18/19 04/24/23 hydrochlorothiazide 12.5 mg capsule 12.5 mg PO DAILY 03/25/20 04/24/23 lisinopril 10 mg tablet 10 mg PO DAILY 03/25/20 04/24/23 latanoprost 0.005 % eye drops 1 drp EACH EYE HS 07/21/21 04/24/23 sumatriptan succinate 50 mg tablet 50 mg PO DIRECTED 07/31/21 04/24/23 hydroxyzine pamoate 25 mg capsule 25 mg DAILY 05/30/22 04/24/23 phentermine 37.5 mg tablet mg 04/24/23 Allergies Allergy/AdvReac Type Severity Reaction Status Date / Time adhesive Allergy Mild Rash Verified 04/24/23 18:03 Cat Dander Allergy Mild Watery Eye Uncoded 04/24/23 18:03 Review of Systems Review of Systems: CONSTITUTIONAL: Denies malaise, chills, sweats, or fever. EYES: Denies redness, or discharge. ENT: Denies rhinorrhea, congestion, swollen lips, swollen tongue CARDIOVASCULAR: Denies chest pain, palpitations, or edema. RESPIRATORY: Denies cough or dyspnea. GASTROINTESTINAL: Denies abdominal pain, nausea, vomiting SKIN: Reports redness, swelling. Denies purulent drainage, vesicles, bullae, numbness, pain beyond proportion MUSCULOSKELETAL: Denies joint pain or myalgia. NEUROLOGIC: Denies headache. All systems reviewed & are unremarkable except as noted in HPI and below PMFSH Past Medical History Medical History Depression H/O gastroesophageal reflux (GERD) Hypertension Surgical History Surgical History No pertinent past surgical history Family History Family History Mother Family history non-contributory Social History Social History Smoking status: Never smoker Substance use: never Gender identity (if verbalized by the patient): Female Spiritual care concerns: No Comments At time of signature, agree with nursing past medical, surgical, social and family history. There is no relevant family history pertinent to the presenting complaint Exam Narrative: GENERAL: Well-appearing, well-nourished, and in no acute distress. HEAD: Normocephalic, atraumatic. EYES: PERRLA, conjunctivae clear ENT: Mucous membranes moist. NECK: Supple. No lymphadenopathy CHEST: Clear to auscultation. No respiratory distress. HEART: Regular rate and rhythm. SKIN: Warm, dry. Two surgical incision sites well-approximated with intact sutures noted to the right forearm, the longest incision is erythematous, edematous, warm, tender through the length of the incision, the shorter incision has about 4 cm area of erythema, edema, warmth, tenderness, no visible drainage noted, no areas of fluctuation noted. NEURO: Alert and oriented x3. PSYCH: Normal mood and affect Course Course Emergency Course: Patient is aware of diagnosis, understands and agrees to treatment plan. Anticipatory guidance given. Patient agrees to follow-up as directed and is aware of reasons to seek care at the emergency department. Portions of this record may have been created with voice recognition software Level of Care: Express Care Visit Vital Sig
== END 2023-10-14 14:12 | disposition home or self-care (01) ==
PROVIDERS: Emergency Provider Nurse Practitioner
DX: T81.40XA Infection following a procedure, unspecified, initial encounter (principal); K21.9 Gastro-esophageal reflux disease without esophagitis; I10 Essential (primary) hypertension
CPT/HCPCS: 87070; 87075; 87077; 87181; 87186; 87205; 99213; G0463

== ENCOUNTER 2024-02-08 08:45 | Outpatient (RCR) | payer OTHER, SELFPAY ==
--- NOTE | 2023-12-28 11:01 | OTOPEVAL1 ---
Assessment and note entered by JEAN CARLOS Hedrick/Donovan, CHT Evaluation Information Assessment Status Evaluation Diagnosis Closed displaced comminuted fracture of shaft of right radius s/p ORIF Onset ORIF 09/27/23 Subjective Information Patient is left handed. Reports she had difficulty getting to therapy due to her work schedule. She reports she is experiencing residual weakness and stiffness. She reports she has progressed to being able to dress herself, except for help with hooking her bra. She is back to being able to cook and clean, with the exception of any heavy lifting, like a cast iron cohen, she does not lift. Reported Pain Level Pain Score 0: Self Report Assessment OT Clinical Summary Patient referred to OT with right forearm fractures s/p ORIF. She presents with residual stiffness and weakness that limits return to use, particularly with lifting tasks and typing. Skilled OT indicated to maximize functional ROM and strength of the right UE. Plan of Care Interventions Therapeutic Exercise,Manual Therapy,Therapeutic Activities,Hot Pack/Cold Pack,Paraffin OT Services Indicated Yes Treatment Frequency and 2x/week for 10 visits Duration These treatments will address the objective and functional deficits as defined above. The patient will be advanced safely and appropriately in order for the patient to progress towards his/her prior level of function. Additional exercises will be introduced and as well as a comprehensive home exercise program upon discharge, if needed, ?to ensure carryover of functional gains achieved in the clinic. This treatment plan has been reviewed and agreement upon by the patient.
--- NOTE | 2023-12-28 11:01 | OPREHPOC ---
Outpatient Therapy Plan of Care This is a Multidisciplinary Plan of Care that may contain components documented by all disciplines (PT, OT, and ST.) OT Problem 1 OT Problem #1 Knowledge Deficit OT Goal 1 Goal 1. Patient to be indep. with instructed materials. Target Visit 10 OT Problem 2 OT Problem #2 Pain OT Goal 1 Goal 1. Patient to be indep. with non medication pain management: - ROM - heat/ice - massage - rest Target Visit 10 OT Problem 3 OT Problem #3 Impaired Range of Motion OT Goal 1 Goal 1. Increase active pronation from 45 to 60 degrees . Target Visit 10 OT Problem 4 OT Problem #4 Impaired Strength OT Goal 1 Goal 1. Increase right functional pelt grader strength as demonstrated by being able to complete pelt grader/pinch strengthening with red putty x5 minutes without pain or rest break. 2. Increase right functional wrist strength as demonstrated by being able to complete 20 reps of wrist exercises with 2 lb. free weight in all planes. 3. Increase right functional forearm strength as demonstrated by being able to complete forearm rotation with 1 lb. mallet x20 reps with good form . Target Visit 10
--- NOTE | 2024-01-21 11:07 | OTOPPROG ---
Assessment and note entered by Marty Cordero, JEAN CARLOS/Donovan, CHT OT Progress Update 01/21/24 Diagnosis Closed displaced comminuted fracture of shaft of right radius s/p ORIF Onset ORIF 09/27/23 Subjective Information Patient reports improvements in her ROM and strength. She is reporting less pain. She reports improvements with being able to type and lift objects. She states she has been able to lift a cast iron cohen with both hands, but states it felt like she was going to drop it. 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 She has participated in 8 OT sessions and has been compliant with all materials . Patient is making excellent progress with flexibility and strength. She continues to demonstrate residual stiffness and weakness that limits return of lifting and heavier tasks. Continued skilled OT indicated to maximize functional ROM and strength of the right UE via use of paraffin, therapeutic exercise, and HEP progression. Plan of Care Interventions Therapeutic Exercise,Manual Therapy,Therapeutic Activities,Hot Pack/Cold Pack,Paraffin OT Services Indicated Yes Treatment Frequency and 1-2x/week for 4 visits Duration These treatments will address the objective and functional deficits as defined above. The patient will be advanced safely and appropriately in order for the patient to progress towards his/her prior level of function. Additional exercises will be introduced and as well as a comprehensive home exercise program upon discharge, if needed, ?to ensure carryover of functional gains achieved in the clinic. This treatment plan has been reviewed and agreement upon by the patient.
--- NOTE | 2024-01-21 11:08 | OPREHPOC ---
Outpatient Therapy Plan of Care This is a Multidisciplinary Plan of Care that may contain components documented by all disciplines (PT, OT, and ST.) OT Problem 1 OT Problem #1 Knowledge Deficit OT Goal 1 Goal 1. Patient to be indep. with instructed materials. ---OT POC UPDATE 01/21/24--- 1. Met, continue as HEP is progressed Target Visit 12 OT Problem 2 OT Problem #2 Pain OT Goal 1 Goal 1. Patient to be indep. with non medication pain management: - ROM - heat/ice - massage - rest ---OT POC UPDATE 01/21/24--- 1. Met Target Visit 12 OT Problem 3 OT Problem #3 Impaired Range of Motion OT Goal 1 Goal 1. Increase active pronation from 45 to 60 degrees . ---OT POC UPDATE 01/21/24--- 1. Progressing, continue goal Target Visit 12 OT Problem 4 OT Problem #4 Impaired Strength OT Goal 1 Goal 1. Increase right functional claims director strength as demonstrated by being able to complete claims director/pinch strengthening with red putty x5 minutes without pain or rest break. 2. Increase right functional wrist strength as demonstrated by being able to complete 20 reps of wrist exercises with 2 lb. free weight in all planes. 3. Increase right functional forearm strength as demonstrated by being able to complete forearm rotation with 1 lb. mallet x20 reps with good form . ---OT POC UPDATE 01/21/24--- 1. Met 2. 15 reps, continue goal 3. Patient continues to be unable to tolerate mallet exercise, continue goal Target Visit 12
--- NOTE | 2024-02-08 09:29 | OTOPDC ---
Assessment and note entered by Marty Cordero, JEAN CARLOS/Donovan, CHT OT D/C 02/08/24 Diagnosis Closed displaced comminuted fracture of shaft of right radius s/p ORIF Onset ORIF 09/27/23 Subjective Information Patient reports improvements in her ROM and strength. She is reporting less pain. She reports improvements with being able to lift heavier objects such as her cast iron. Forearm supination is WNL at 85 degrees Forearm pronation improved from 45 to 55 degrees Wrist flexion improved from 55 to 60 degrees Wrist extension improved from 55 to 65 degrees Finger and thumb ROM is WNL (R) Leather Worker strength measuring 43 lbs. Improved from 25 lbs. Reported Pain Level Pain Score 0: Self Report Additional Pain Score Comments No pain at rest. Patient reports 1/10 pain first thing in the morning. No pain with ADLs. Assessment OT Clinical Summary Patient referred to OT with right forearm fractures s/p ORIF. She has participated in 11 OT sessions and has been compliant with all materials . She is progressing with returning to functional use, noting no limitations with ADLs. Patient has progressed to normal limits with wrist ROM and forearm supination. She continues to have residual limitations with forearm pronation. HEP reviewed and she has been instructed on which exercises to continue to focus on. No further skilled OT indicated at this time. D/C with HEP. Plan of Care OT Services Indicated No
== END 2024-02-08 10:09 | disposition home or self-care (01) ==
LOC: ANHOT 08:45
DX: S52.351D Displaced comminuted fracture of shaft of radius, right arm, subsequent encounter for closed fracture with routine healing (principal)
CPT/HCPCS: 97018; 97110; 97140; 97165

== ENCOUNTER 2024-04-25 18:33 | Emergency (ER) | payer OTHER, SELFPAY ==
[2024-04-25 18:42] VITALS: BP 115/72; PULSE 89; RESP 18; TEMP 36.4; O2SAT 97
--- NOTE | 2024-04-25 18:43 | ED.EAR ---
HPI - Ear Problem General Chief complaint: Ear Stated complaint: Ear Ache Source: patient Mode of arrival: ambulatory Limitations: no limitations History of Present Illness HPI Narrative: [age] year female presented for complaint of left ear pain x2-3 days. States the right ear did hurt but is now resolved. Has been using olive oil and cotton ball. Endorses some brown discharge. Denies nasal congestion, tinnitus, dizziness, n/v/f/c. MD Complaint: ear pain Related Data Home Medications Medication Instructions Recorded Confirmed lamotrigine 100 mg tablet 100 mg BID 10/18/19 01/24/24 hydrochlorothiazide 12.5 mg capsule 12.5 mg PO DAILY 03/25/20 01/24/24 lisinopril 10 mg tablet 10 mg PO DAILY 03/25/20 01/24/24 latanoprost 0.005 % eye drops 1 drp EACH EYE HS 07/21/21 01/24/24 sumatriptan succinate 50 mg tablet 50 mg PO DIRECTED 07/31/21 01/24/24 hydroxyzine pamoate 25 mg capsule 25 mg DAILY 05/30/22 01/24/24 phentermine 37.5 mg tablet mg 04/24/23 01/24/24 brimonidine 0.2 % eye drops drp EACH EYE 01/24/24 01/24/24 sertraline 100 mg tablet mg PO 01/24/24 01/24/24 triamcinolone acetonide 0.1 % 0.1 applic topical DIRECTED 04/25/24 04/25/24 topical ointment Allergies Allergy/AdvReac Type Severity Reaction Status Date / Time adhesive Allergy Mild Rash Verified 04/25/24 18:50 Cat Dander Allergy Mild Watery Eye Uncoded 04/25/24 18:50 Review of Systems Review of Systems: CONSTITUTIONAL: Denies malaise, chills, or fever. EYES: Denies visual changes, redness, or discharge. ENT: Denies rhinorrhea, congestion, sinus pain, and sore throat. Reports ear pain CARDIOVASCULAR: Denies chest pain, palpitations, or edema. RESPIRATORY: Denies cough or dyspnea. GASTROINTESTINAL: Denies abdominal pain, nausea, vomiting, diarrhea SKIN: Denies rash or itching. MUSCULOSKELETAL: Denies myalgia. NEUROLOGIC: Denies headache. All systems reviewed & are unremarkable except as noted in HPI and below PMFSH Past Medical History Medical History Anxiety Bipolar 1 disorder delivery delivered Depression H/O gastroesophageal reflux (GERD) History of abnormal cervical Pap smear Hx-TIA (transient ischemic attack) Hypertension Surgical History Surgical History H/O gynecological procedure ovary removed pt does not remember when 2014 Paragard insertion History of orthopedic surgery 09/27/23 R arm Hx of appendectomy No pertinent past surgical history Family History Family History Mother Family history non-contributory Social History Social History Smoking status: Never smoker Alcohol intake: current Alcohol use details: rarely Substance use: never Substance use type: does not use Do You Feel Safe in your Home?: Yes Lack of Transportation: No Lack of Food: Never True Current Housing: I Have Housing Concerned About Future Housing: No Difficulty Paying Gas/Electric Bills: No Difficulty Paying for Meds: No Currently Unemployed: No Education: Bachelor's Degree Difficulty w/ Childcare or Family Care: No Living arrangements: with family Additional living arrangements comments: children 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 There is no relevant family history pertinent to the presenting complaint Exam Narrative: GENERAL: Well-appearing EYES: PERRLA, conjunctivae clear ENT: Nares clear. Mucous membranes moist. TMs pearly banks with dull light reflex bilaterally; no tragal tenderness. Oropharynx erythematous without lesions. Tonsils enlarged 1+ without exudate, no drooling, no hoarseness, no trismus, uvula midline. NECK: Supple. No lymphadenopathy CHEST: Clear to auscultation, breath sounds equal. No wheezing, rhonchi, rales, or stridor. No respiratory distress, speaks in full sentences. HEART: Regular rate and rhythm. No murmur heard. SKIN: Warm, dry, no rash. NEURO: Alert and oriented x3. PSYCH: Normal mood and affect Course Course Emergency Course: Patient is aware of diagnosis, understands and agrees to treatment plan. Anticipatory guidance given. Patient agrees to follow-up as directed and is aware of reasons to seek care at the emergency department. Portions of this record may have been created with voice recognition software Level of Care: Express Care Visit Vital Signs Vital signs: Vital Signs Temperature 97.5 F L 04/25/24 18:42 Pulse Rate 89 04/25/24 18:42 Respiratory Rate 18 04/25/24 18:42 Blood Pressure 115/72 04/25/24 18:42 Pulse Oximetry 97 04/25/24 18:42 Oxygen Delivery Room Air 04/25/24 18:42 Temperature 97.5 F L 04/25/24 18:42 Pulse Rate 89 04/25/24 18:42 Respiratory Rate 18 04/25/24 18:42 Blood Pressure 115/72 04/25/24 18:42 Pulse Oximetry 97 04/25/24 18:42 Oxygen Delivery Room Air 04/25/24 18:42 Reviewed Medical Decision Making MDM Narrative Medical decision making narrative: Discussed physical exam findings, neg strep. No AOM noted. Advised supportive measures and signs/symptoms to go to the ER. Patient is appropriate for outpatient treatment and follow-up. Differential Diagnosis Differential Diagnosis: Coronavirus, strep pharyngitis, allergic rhinitis, upper respiratory tract infection, sinusitis, rhinosinusitis, nasopharyngitis, viral pharyngitis, otitis media, otitis externa, eustachian tube dysfunction, foreign body, cerumen impaction. Vital Signs Vital Signs: Vital Signs Temperature 97.5 F L 04/25/24 18:42 Pulse Rate 89 04/25/24 18:42 Respiratory Rate 18 04/25/24 18:42 Blood Pressure 115/72 04/25/24 18:42 Pulse Oximetry 97 04/25/24 18:42 Oxygen Delivery Room Air 04/25/24 18:42 Temperature 97.5 F L 04/25/24 18:42 Pulse Rate 89 04/25/24 18:42 Respiratory Rate 18 04/25/24 18:42 Blood Pressure 115/72 04/25/24 18:42 Pulse Oximetry 97 04/25/24 18:42 Oxygen Delivery Room Air 04/25/24 18:42 Discharge Plan Discharge Clinical Impression: Acute otalgia Patient Disposition: Home, Self-Care Condition: Stable Instructions: Antibiotic Form, Earache (ED) Additional Instructions: Recommend antihistamine such as Benadryl, Zyrtec or Vee for sinus congestion Flonase nasal spray, 1 spray in each nostril once daily until symptoms improve Symptomatic treatment includes: rest, fluids, and increase humidity of the air at home. Tylenol and ibuprofen every 8 hours as needed to reduce fever, pain Please schedule a follow-up visit with your personal physician If your symptoms persist, change or worsen significantly, go to the emergency department for further evaluation. Prescriptions: No Action lisinopril 10 mg Tablet 10 mg PO DAILY hydrochlorothiazide 12.5 mg Capsule 12.5 mg PO DAILY latanoprost 0.005 % drops 1 drp EACH EYE HS triamcinolone acetonide 0.1 % ointment 0.1 applic TOPICAL DIRECTED hydroxyzine pamoate 25 mg capsule 25 mg DAILY lamotrigine 100 mg tablet 100 mg BID phentermine 37.5 mg tablet brimonidine 0.2 % drops EACH EYE sertraline 100 mg tablet PO sumatriptan succinate 50 mg tablet 50 mg PO DIRECTED Follow-up/Referrals: UNKNOWN,DOCTOR [Primary Care Provider] - Time of Disposition: 19:09
[2024-04-25 19:15] LABS: EDSTREPNEGPOS1 Negative (Negative)
== END 2024-04-25 19:11 | disposition home or self-care (01) ==
PROVIDERS: Emergency Provider Nurse Practitioner Family
DX: H92.02 Otalgia, left ear (principal); I10 Essential (primary) hypertension
CPT/HCPCS: 87081; 87880; 99213; G0463

== ENCOUNTER 2024-05-12 17:08 | Emergency (ER) | payer OTHER, SELFPAY ==
[2024-05-12 17:35] VITALS: BP 130/64; PULSE 85; RESP 20; TEMP 37.1; O2SAT 98
--- NOTE | 2024-05-12 18:08 | ED.EAR ---
HPI - Ear Problem General Chief complaint: Ear Stated complaint: right ear injury Time Seen by Provider: 05/12/24 17:44 Source: patient and RN notes reviewed Mode of arrival: ambulatory Limitations: no limitations History of Present Illness HPI Narrative: Patient was seen at 6:00 p.m. instead of 1744. Patient presents today complaining of some bleeding from the right ear canal 2 days ago after she cleaned her ear with a Q-tip after shower. It is not continuing to bleed. Denies pain. She can hear normally. Related Data Home Medications Medication Instructions Recorded Confirmed lamotrigine 100 mg tablet 100 mg BID 10/18/19 05/12/24 hydrochlorothiazide 12.5 mg capsule 12.5 mg PO DAILY 03/25/20 05/12/24 lisinopril 10 mg tablet 10 mg PO DAILY 03/25/20 05/12/24 latanoprost 0.005 % eye drops 1 drp EACH EYE HS 07/21/21 05/12/24 sumatriptan succinate 50 mg tablet 50 mg PO DIRECTED 07/31/21 05/12/24 hydroxyzine pamoate 25 mg capsule 25 mg DAILY 05/30/22 05/12/24 phentermine 37.5 mg tablet 37.5 mg DIRECTED 04/24/23 05/12/24 brimonidine 0.2 % eye drops 1 drp EACH EYE DIRECTED 01/24/24 05/12/24 sertraline 100 mg tablet 100 mg PO DIRECTED 01/24/24 05/12/24 triamcinolone acetonide 0.1 % 0.1 applic topical DIRECTED 04/25/24 05/12/24 topical ointment Allergies Allergy/AdvReac Type Severity Reaction Status Date / Time adhesive Allergy Mild Rash Verified 05/12/24 17:32 Cat Dander Allergy Mild Watery Eye Uncoded 05/12/24 17:32 Review of Systems Review of Systems: CONSTITUTIONAL: Denies body aches, fever, chills, or sweats. EYES: Denies visual changes, redness, or discharge. ENT: Denies rhinorrhea, congestion, sore throat, or otalgia.+ bleeding from right ear canal CARDIOVASCULAR: Denies chest pain, palpitations, or edema. RESPIRATORY: Denies cough or dyspnea. GASTROINTESTINAL: Denies abdominal pain, nausea, vomiting, or diarrhea. GENITOURINARY: Denies dysuria or hematuria. SKIN: Denies rash, itching, or wounds. MUSCULOSKELETAL: Denies back pain, joint pain, or myalgia. NEUROLOGIC: Denies headache, numbness, tingling, or weakness. PSYCH: Denies depression or anxiety. [facility] Past Medical History Medical History Anxiety Bipolar 1 disorder delivery delivered Depression H/O gastroesophageal reflux (GERD) History of abnormal cervical Pap smear Hx-TIA (transient ischemic attack) Hypertension Surgical History Surgical History H/O gynecological procedure ovary removed pt does not remember when 2015 Paragard insertion History of orthopedic surgery 09/27/23 R arm Hx of appendectomy No pertinent past surgical history Family History Family History Mother Family history non-contributory Social History Social History Smoking status: Never smoker Alcohol intake: current Alcohol use details: rarely Substance use: never Substance use type: does not use Do You Feel Safe in your Home?: Yes Lack of Transportation: No Lack of Food: Never True Current Housing: I Have Housing Concerned About Future Housing: No Difficulty Paying Gas/Electric Bills: No Difficulty Paying for Meds: No Currently Unemployed: No Education: Bachelor's Degree Difficulty w/ Childcare or Family Care: No Living arrangements: with family Additional living arrangements comments: children 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 Please see nursing chart for further information. There is no relevant family history pertinent to the presenting complaint Exam Narrative: GENERAL: Well-appearing, well-nourished, and in no acute distress. HEAD: Normocephalic, atraumatic. EYES: EOMI. No redness or drainage. Conjunctivae normal. ENT: Mucous membranes pink and moist. Nares clear. No rhinorrhea. Right TM intact. Few spots of dried blood in the ear canal. NECK: Normal AROM. CHEST: No respiratory distress. EXTREMITIES: Normal range of motion. No edema. SKIN: Warm, dry, no rash. Capillary refill normal. Normal skin turgor. NEURO: No focal deficits. Alert and oriented x3. Gait steady. PSYCH: Normal affect. No signs of depression or anxiety. Course Course Level of Care: Express Care Visit Vital Signs Vital signs: Vital Signs Temperature 98.7 F 05/12/24 17:35 Pulse Rate 85 05/12/24 17:35 Respiratory Rate 20 05/12/24 17:35 Blood Pressure 130/64 05/12/24 17:35 Pulse Oximetry 98 05/12/24 17:35 Oxygen Delivery Room Air 05/12/24 17:35 Temperature 98.7 F 05/12/24 17:35 Pulse Rate 85 05/12/24 17:35 Respiratory Rate 20 05/12/24 17:35 Blood Pressure 130/64 05/12/24 17:35 Pulse Oximetry 98 05/12/24 17:35 Oxygen Delivery Room Air 05/12/24 17:35 Reviewed Medical Decision Making MDM Narrative Medical decision making narrative: Patient's TM is intact. She likely abraded the ear canal causing bleeding. Discussed not using Q-tips or any other instruments to clean water out of her ears. Patient does not agree with this plan. Anticipatory guidance given. Differential Diagnosis Differential Diagnosis: Ear canal abrasion, ruptured TM Vital Signs Vital Signs: Vital Signs Temperature 98.7 F 05/12/24 17:35 Pulse Rate 85 05/12/24 17:35 Respiratory Rate 20 05/12/24 17:35 Blood Pressure 130/64 05/12/24 17:35 Pulse Oximetry 98 05/12/24 17:35 Oxygen Delivery Room Air 05/12/24 17:35 Temperature 98.7 F 05/12/24 17:35 Pulse Rate 85 05/12/24 17:35 Respiratory Rate 20 05/12/24 17:35 Blood Pressure 130/64 05/12/24 17:35 Pulse Oximetry 98 05/12/24 17:35 Oxygen Delivery Room Air 05/12/24 17:35 Critical Care Time Critical Care Time Critical Care Time: No Discharge Plan Discharge Clinical Impression: Abrasion of right ear canal Patient Disposition: Home, Self-Care Condition: Stable Additional Instructions: Your eardrum does not seem to be damaged. The blood is likely from an abrasion in your ear canal. Do not continue to clean your ear canal with any Q-tips or other instruments. It will dry on its own after you shower. Follow-up with your PCP with any additional concerns. Your blood pressure was elevated above 120/80 today at Urgent Care. This puts you above the threshold for follow up. Please schedule a followup visit with your personal physician as soon as possible, for further evaluation and treatment. Even blood pressure exceeding 120/80 may indicate pre-hypertension. Prescriptions: No Action lisinopril 10 mg Tablet 10 mg PO DAILY hydrochlorothiazide 12.5 mg Capsule 12.5 mg PO DAILY latanoprost 0.005 % drops 1 drp EACH EYE HS triamcinolone acetonide 0.1 % ointment 0.1 applic TOPICAL DIRECTED hydroxyzine pamoate 25 mg capsule 25 mg DAILY lamotrigine 100 mg tablet 100 mg BID phentermine 37.5 mg tablet 37.5 mg DIRECTED brimonidine 0.2 % drops 1 drp EACH EYE DIRECTED sertraline 100 mg tablet 100 mg PO DIRECTED sumatriptan succinate 50 mg tablet 50 mg PO DIRECTED Follow-up/Referrals: PHYSICIAN NOT ON STAFF,NONSTAFF [Primary Care Provider] - Time of Disposition: 18:13
== END 2024-05-12 18:25 | disposition home or self-care (01) ==
LOC: EXPCOLL 17:15
PROVIDERS: Emergency Provider Nurse Practitioner
DX: S00.411A Abrasion of right ear, initial encounter (principal); I10 Essential (primary) hypertension; Z79.899 Other long term (current) drug therapy; Z86.73 Personal history of transient ischemic attack (TIA), and cerebral infarction without residual deficits; X58.XXXA Exposure to other specified factors, initial encounter
CPT/HCPCS: 99212; G0463

== ENCOUNTER 2025-01-16 17:10 | Emergency (ER) | payer OTHER, SELFPAY ==
--- NOTE | 2025-01-16 17:15 | ED.EAR ---
HPI - Ear Problem General Chief complaint: Ear Stated complaint: Throat/Jaw/Ear Irritation Time Seen by Provider: 01/16/25 17:15 Source: patient Mode of arrival: ambulatory Limitations: no limitations History of Present Illness HPI Narrative: Brianda is a 50-year-old female patient presenting to the clinic today with complaints of left jaw, ear, and throat pain. She reports symptoms have been going on for 2 weeks. Seen her PCP and they recommended she use a mouth guard and states that that is not helping. States she has tried some sweet oil for the ear and that has not helped. Denies any fevers, chills, body aches. No pain with swallowing. Denies any dental pain. Related Data Home Medications ?Medication ?Instructions ?Recorded ?Confirmed ?Last Taken ?Type lamotrigine 100 mg tablet 100 mg BID 10/18/19 05/12/24 Unknown History hydrochlorothiazide 12.5 mg capsule 12.5 mg PO DAILY 03/25/20 01/16/25 Unknown History lisinopril 10 mg tablet 10 mg PO DAILY 03/25/20 01/16/25 Unknown History latanoprost 0.005 % eye drops 1 drp EACH EYE HS 07/21/21 05/12/24 Unknown History sumatriptan succinate 50 mg tablet 50 mg PO DIRECTED 07/31/21 05/12/24 Unknown History hydroxyzine pamoate 25 mg capsule 25 mg DAILY 05/30/22 05/12/24 Unknown History phentermine 37.5 mg tablet 37.5 mg DIRECTED 04/24/23 05/12/24 Unknown History brimonidine 0.2 % eye drops 1 drp EACH EYE DIRECTED 01/24/24 05/12/24 Unknown History sertraline 100 mg tablet 100 mg PO DIRECTED 01/24/24 01/16/25 Unknown History triamcinolone acetonide 0.1 % 0.1 applic topical DIRECTED 04/25/24 05/12/24 Unknown History topical ointment cyclobenzaprine 10 mg tablet mg 01/16/25 Unknown History omeprazole 20 mg capsule,delayed mg 01/16/25 Unknown History release Allergies Allergy/AdvReac Type Severity Reaction Status Date / Time adhesive Allergy Mild Rash Verified 01/16/25 17:25 Cat Dander Allergy Mild Watery Eye Uncoded 01/16/25 17:25 Review of Systems Review of Systems: Pertinent positives per HPI. Patient denies any fever, chills, rash, headache, visual changes, dizziness, cough, shortness of breath, chest pain, palpitations, nausea, vomiting, diarrhea, constipation, abdominal pain, or any urinary issues. [facility] Past Medical History Medical History History of abnormal cervical Pap smear delivery delivered Hx-TIA (transient ischemic attack) Anxiety Bipolar 1 disorder Hypertension H/O gastroesophageal reflux (GERD) Depression Surgical History Surgical History Hx of appendectomy History of orthopedic surgery 09/27/23 R arm H/O gynecological procedure ovary removed pt does not remember when 2015 Paragard insertion No pertinent past surgical history Family History Family History Mother Family history non-contributory Social History Social History Smoking status: Never smoker Alcohol intake: current Alcohol use details: rarely Substance use: never Substance use type: does not use Do You Feel Safe in your Home?: Yes Lack of Transportation: No Lack of Food: Never True Current Housing: I Have Housing Concerned About Future Housing: No Difficulty Paying Gas/Electric Bills: No Difficulty Paying for Meds: No Currently Unemployed: No Education: Bachelor's Degree Difficulty w/ Childcare or Family Care: No Living arrangements: with family Additional living arrangements comments: children 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 There is no relevant family history pertinent to the patient complaint. Exam Narrative: General: Well-developed, well nourished, in no apparent distress Head: Normocephalic, atraumatic Eyes: Pupils equally round and reactive to light bilaterally, EOM intact, sclera and conjunctive clear, no discharge, lids normal Ears: TMs intact and clear, ear canals clear, no drainage, grossly hearing normal. Nose: Nares patent, no discharge, no inflammation, no sinus tenderness. Mouth: Oral pharynx without lesions or masses, good dentition, MMM. No dental pain to palpation, tenderness to palpation over the left TMJ joint when opening/closing her mouth, no crepitus with opening and closing of the jaw Neck: Supple, trachea midline, no enlargement of anterior or posterior cervical nodes, no thyroid masses or goiter palpable. Cardio: Regular rate and rhythm, s1 and s2 normal, no murmur appreciated. Resp: Clear to auscultation bilaterally, no rhonchi, rales, wheezing or rubs Course Course Emergency Course: Portions of this record may have been created with voice recognition software. Level of Care: Express Care Visit Vital Signs Vital signs: Vital Signs Temperature 36.2 C L 01/16/25 17:26 Pulse Rate 97 01/16/25 17:26 Respiratory Rate 16 01/16/25 17:26 Blood Pressure 111/68 01/16/25 17:26 Pulse Oximetry 98 01/16/25 17:26 Temperature 36.2 C L 01/16/25 17:26 Pulse Rate 97 01/16/25 17:26 Respiratory Rate 16 01/16/25 17:26 Blood Pressure 111/68 01/16/25 17:26 Pulse Oximetry 98 01/16/25 17:26 Vital signs reviewed Medical Decision Making Vital Signs Vital Signs: Vital Signs Temperature 36.2 C L 01/16/25 17:26 Pulse Rate 97 01/16/25 17:26 Respiratory Rate 16 01/16/25 17:26 Blood Pressure 111/68 01/16/25 17:26 Pulse Oximetry 98 01/16/25 17:26 Temperature 36.2 C L 01/16/25 17:26 Pulse Rate 97 01/16/25 17:26 Respiratory Rate 16 01/16/25 17:26 Blood Pressure 111/68 01/16/25 17:26 Pulse Oximetry 98 01/16/25 17:26 Lab Data Labs: Lab Results 01/16/25 Range/Units 17:33 POC Grp A Strep Screen Negative (Negative) Discharge Plan Discharge Clinical Impression: TMJ (temporomandibular joint syndrome) Patient Disposition: Home Condition: Stable Instructions: Antibiotic Form, Temporomandibular Disorder (ED) Additional Instructions: Strep test was negative in the clinic today. We will send strep for culture. No sign of an ear or dental infection. Take naproxen as prescribed May apply heat or ice affected area to help alleviate pain-20 minutes on/20 minutes off May take Tylenol additionally as needed for pain May continue using mouth guard. Follow-up with your PCP as needed Patient Language: Faroese Prescriptions: New naproxen 500 mg tablet 500 mg PO BID PRN (Reason: pain) 7 Days Qty: 14 0RF No Action lisinopril 10 mg Tablet 10 mg PO DAILY hydrochlorothiazide 12.5 mg Capsule 12.5 mg PO DAILY latanoprost 0.005 % drops 1 drp EACH EYE HS triamcinolone acetonide 0.1 % ointment 0.1 applic TOPICAL DIRECTED cyclobenzaprine 10 mg tablet omeprazole 20 mg capsule,delayed release(DR/EC) hydroxyzine pamoate 25 mg capsule 25 mg DAILY lamotrigine 100 mg tablet 100 mg BID phentermine 37.5 mg tablet 37.5 mg DIRECTED brimonidine 0.2 % drops 1 drp EACH EYE DIRECTED sertraline 100 mg tablet 100 mg PO DIRECTED sumatriptan succinate 50 mg tablet 50 mg PO DIRECTED estradiol 0.01 % (0.1 mg/gram) cream 1 g vaginal 2XW Qty: 42.5 5RF Rx Instructions: twice weekly Follow-up/Referrals: Ermias,JUDITH Zepeda [Primary Care Provider] - Time of Disposition: 17:36 Quality NIHSS Nursing Documentation ED NIHSS nursing documentation: reviewed/agree
[2025-01-16 17:26] VITALS: BP 111/68; PULSE 97; RESP 16; TEMP 36.2; O2SAT 98
[2025-01-16 17:34] LABS: EDSTREPNEGPOS1 Negative (Negative)
== END 2025-01-16 17:40 | disposition home or self-care (01) ==
PROVIDERS: Emergency Provider Nurse Practitioner Family; PCP Physician Assistant
DX: M26.602 Left temporomandibular joint disorder, unspecified (principal); I10 Essential (primary) hypertension; K21.9 Gastro-esophageal reflux disease without esophagitis; Z86.73 Personal history of transient ischemic attack (TIA), and cerebral infarction without residual deficits; F31.9 Bipolar disorder, unspecified; F41.9 Anxiety disorder, unspecified
CPT/HCPCS: 87081; 87880; 99213; G0463

== ENCOUNTER 2025-01-22 14:39 | Emergency (ER) | payer OTHER, SELFPAY ==
--- NOTE | ~2025-01-22 | XR_ITS ---
EXAM/ PROCEDURE: XR ankle RT min 3V - 01/22/2025 14:54 CDT HISTORY: 50 years old Female with fall, pain, swelling LT ankle. today. hx heel fx COMPARISON: None available TECHNIQUE: Four view(s) FINDINGS/ IMPRESSION: Chronic fracture of the calcaneus. Plantar enthesopathy. There are no fractures or dislocations.Joint space narrowing, subchondral sclerosis, subchondral cyst formation and osteophyte formation, compatible with mild osteoarthritis. Reviewed, dictated and finalized at location A.
[2025-01-22 14:51] VITALS: BP 134/77; PULSE 106; RESP 18; TEMP 36.7; O2SAT 99
--- NOTE | 2025-01-22 14:52 | ED.LOWEXIN ---
HPI - Extremity Injury (Lower) General Chief Complaint: Extremity Injury, Lower Stated Complaint: Right Ankle Pain Time Seen by Provider: 01/22/25 14:40 Source: patient Mode of arrival: ambulatory Limitations: no limitations History of Present Illness HPI Narrative: Patient is a 50-year-old female who presents with right ankle pain. Patient slipped on Pee-Aid and landed on right foot. Patient having pain to the lateral side of ankle and is unable to bear weight due to pain. Reports swelling and bruising. Denies hitting head with fall. Related Data Home Medications ?Medication ?Instructions ?Recorded ?Confirmed ?Last Taken ?Type lamotrigine 100 mg tablet 100 mg BID 10/18/19 05/12/24 Unknown History hydrochlorothiazide 12.5 mg capsule 12.5 mg PO DAILY 03/25/20 01/16/25 Unknown History lisinopril 10 mg tablet 10 mg PO DAILY 03/25/20 01/16/25 Unknown History latanoprost 0.005 % eye drops 1 drp EACH EYE HS 07/21/21 05/12/24 Unknown History sumatriptan succinate 50 mg tablet 50 mg PO DIRECTED 07/31/21 05/12/24 Unknown History hydroxyzine pamoate 25 mg capsule 25 mg PO DAILY 05/30/22 05/12/24 Unknown History phentermine 37.5 mg tablet 37.5 mg DIRECTED 04/24/23 05/12/24 Unknown History sertraline 100 mg tablet 100 mg PO DIRECTED 01/24/24 01/16/25 Unknown History triamcinolone acetonide 0.1 % 0.1 applic topical DIRECTED 04/25/24 05/12/24 Unknown History topical ointment cyclobenzaprine 10 mg tablet 10 mg 01/16/25 Unknown History omeprazole 20 mg capsule,delayed mg 01/16/25 Unknown History release Allergies Allergy/AdvReac Type Severity Reaction Status Date / Time adhesive Allergy Mild Rash Verified 01/22/25 14:49 Cat Dander Allergy Mild Watery Eye Uncoded 01/16/25 17:25 Review of Systems Review of Systems: All systems reviewed & are unremarkable except as noted in HPI and below Constitutional: Constitutional: Denies body ache(s), Denies chills, Denies fatigue, Denies fever(s), Denies headache(s), Denies malaise and Denies weakness Eyes: Eyes: Denies blurry vision, Denies irritation and Denies loss of vision ENT: Denies otalgia, Denies headache(s), Denies nasal discharge, Denies sinus pain and Denies sore throat Cardiovascular: Cardiovascular: Denies chest pain, Denies irregular heart rhythm and Denies dyspnea Respiratory: Respiratory: Denies dyspnea Gastrointestinal: Gastrointestinal: Denies abdominal pain, Denies melena, Denies hematochezia, Denies diarrhea, Denies nausea and Denies vomiting Musculoskeletal: Musculoskeletal: Denies back pain, Denies myalgias, Reports arthralgias and Reports joint swelling Integumentary/Breasts: Skin/Breast: Denies pruritus and Denies rash Neurologic: Denies headache(s), Denies loss of vision and Denies weakness Psychiatric: Psychiatric: Reports no additional psychiatric complaints Endocrine: Endocrine: Denies fatigue PMFSH Past Medical History Medical History History of abnormal cervical Pap smear delivery delivered Hx-TIA (transient ischemic attack) Anxiety Bipolar 1 disorder Hypertension H/O gastroesophageal reflux (GERD) Depression Surgical History Surgical History Hx of appendectomy History of orthopedic surgery 09/27/23 R arm H/O gynecological procedure ovary removed pt does not remember when 2015 Paragard insertion No pertinent past surgical history Family History Family History Mother Family history non-contributory Social History Social History Smoking status: Never smoker Alcohol intake: current Alcohol use details: rarely Substance use: never Substance use type: does not use Do You Feel Safe in your Home?: Yes Lack of Transportation: No Lack of Food: Never True Current Housing: I Have Housing Concerned About Future Housing: No Difficulty Paying Gas/Electric Bills: No Difficulty Paying for Meds: No Currently Unemployed: No Education: Bachelor's Degree Difficulty w/ Childcare or Family Care: No Living arrangements: with family Additional living arrangements comments: children 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 There is no relevant family history pertinent to the presenting complaint. Exam Const: General: cooperative, healthy appearing, comfortable, no acute distress and well nourished Nutritional Appearance: well nourished Orientation/consciousness: patient oriented x3 Limitations: no limitations HENMT: Head: normal to inspection, normocephalic and atraumatic Ears: hearing grossly normal bilaterally and external ears normal Face/Nose/Sinus: Normal external nose present, normal facial exam and face symmetric Face and sinus: normal facial exam and face symmetric Mouth: Yes lip normal Eyes: General: appearance normal, both eyes and all related structures Alignment and Position: alignment normal and position normal Periorbital: periorbital findings normal Eyelids: eyelids normal Pupils: Equal, round and reactive pupils present EOM: EOMs intact bilaterally Neck: Neck: normal visual inspection, full ROM and supple Chest: Chest palpation & inspection: normal inspection of the chest Resp: Effort & Inspection: normal respiratory effort and able to speak in complete sentences Auscultation: clear to auscultation bilaterally Cardio: Rate: tachycardic Rhythm: regular rhythm Heart sounds: S1 normal heart sound present and S2 normal heart sound present GI: Inspection: normal to inspection Skin: General skin exam: normal color and no rashes or lesions noted Neuro: General: patient oriented x3 and moves all extremities Cranial nerves: Yes Equal, round and reactive pupils present Speech: normal speech Gait exam (Neuro): Normal gait present Extrem: General: normal to inspection, full ROM and no edema Right lower extremity: lower leg Details: normal to inspection and no edema, ankle Details: tenderness Location: of the lateral malleolus, swelling Details: laterally, abnormal ROM Details: pain with active ROM Details: with plantar flexion, with dorsiflexion and with inversion; not with eversion and ecchymosis lateral Details: single; no unusual warmth and foot Details: normal capillary refill, normal to inspection, toes with normal ROM, vascular exam Details: dorsalis pedis pulse present and normal capillary refill and tendon exam Details: active flexion normal and active extension normal; no tenderness Psych: Appearance: grossly normal and well kempt Mental Status: mental status grossly normal Speech and movement: Normal speech and movement present Affect: normal affect Attitude: cooperative Thought process: Normal thought process present Course Course Emergency Course: Patient is aware of diagnosis, understands and agrees to treatment plan. Anticipatory guidance given. Patient agrees to follow-up as directed and is aware of reasons to seek care at the emergency department. Portions of this record may have been created with voice recognition software Level of Care: Express Care Visit Vital Signs Vital signs: Reviewed MDM - Extremity Injury (Lower) MDM Narrative Medical decision making narrative: Bennie wrap applied. Crutches given with education Pt well hydrated appearing, in no respiratory distress, hemodynamically stable. Recommend supportive care. The patient is stable at time of discharge the clinical impression was discussed and the patient was given the opportunity to ask questions, which were addressed as completely as possible given the information available at present. Anticipatory guidance and return to care precautions were discussed and the importance of primary care follow-up was stressed and encouraged. The patient voiced understanding of the plan, indications to return, and the need for follow-up. Exam findings show no acute concerns or changes Patient is appropriate for outpatient treatment and follow-up. Differential Diagnosis Differential diagnosis: Likely ankle sprain and strain and ankle fracture Medical Records Attestation: I reviewed the patient's medical records. Imaging Data Radiologist's impression: EXAM/ PROCEDURE: XR ankle RT min 3V - 01/22/2025 14:54 CDT HISTORY: 50 years old Female with fall, pain, swelling LT ankle. today. hx heel fx COMPARISON: None available TECHNIQUE: Four view(s) FINDINGS/ IMPRESSION: Chronic fracture of the calcaneus. Plantar enthesopathy. There are no fractures or dislocations.Joint space narrowing, subchondral sclerosis, subchondral cyst formation and osteophyte formation, compatible with mild osteoarthritis. Discharge Plan Discharge Clinical Impression: Ankle sprain and strain Patient Disposition: Home Condition: Stable Instructions: Ankle Sprain (ED) Additional Instructions: Xray showed no fracture. Minimize activities that aggravate the condition The RICE protocol. Follow the RICE protocol as soon as possible after your injury: Rest your ankle by not walking on it. Ice should be immediately applied to keep the swelling down. It can be used for 20 to 30 minutes, three or four times daily. Do not apply ice directly to your skin. Compression dressings, bandages or bennie-wraps will immobilize and support your injured ankle. Elevate your ankle above the level of your heart as often as possible during the first 48 hours. Medication: Nonsteroidal anti-inflammatory drugs (NSAIDs) such as ibuprofen and naproxen can help control pain and swelling. Because they improve function by both reducing swelling and controlling pain, they are a better option for mild sprains than narcotic pain medicines. May also take acetaminophen a 1000 mg up to 4 times a day Please schedule a follow-up visit with your personal physician for further evaluation and treatment within 1week OR If your symptoms persist, change or worsen significantly before you can contact your personal physician then please, without delay, go to the emergency department for further evaluation. Patient Language: Citizen Of [place] Prescriptions: No Action lisinopril 10 mg Tablet 10 mg PO DAILY hydrochlorothiazide 12.5 mg Capsule 12.5 mg PO DAILY latanoprost 0.005 % drops 1 drp EACH EYE HS triamcinolone acetonide 0.1 % ointment 0.1 applic TOPICAL DIRECTED cyclobenzaprine 10 mg tablet 10 mg omeprazole 20 mg capsule,delayed release(DR/EC) naproxen 500 mg tablet 500 mg PO BID PRN (Reason: pain) 7 Days Qty: 14 0RF hydroxyzine pamoate 25 mg capsule 25 mg PO DAILY lamotrigine 100 mg tablet 100 mg BID phentermine 37.5 mg tablet 37.5 mg DIRECTED sertraline 100 mg tablet 100 mg PO DIRECTED sumatriptan succinate 50 mg tablet 50 mg PO DIRECTED estradiol 0.01 % (0.1 mg/gram) cream 1 g vaginal 2XW Qty: 42.5 5RF Rx Instructions: twice weekly Follow-up/Referrals: Ermias,JUDITH Zepeda [Primary Care Provider] - 3 Days Time of Disposition: 15:39
--- NOTE | 2025-01-22 16:10 | PC.NURSE ---
At approx. 1545 I was teaching patient how to walk with crutches, she was unsteady with crutches so I had her hold on to exam bed with her right hand with left crutch still under arm that was near us. I took the right crutch to adjust and patient became unsteady while holding on to my shoulder and fell onto her buttocks with both legs sticking straight out. I had a hold of patients left arm as she was going down to floor. I asked patient if she was ok and she said yes. Malini higgins tech helped me lift patient, along with the assistance of patient up from floor to chair.
== END 2025-01-22 15:50 | disposition home or self-care (01) ==
PROVIDERS: Emergency Provider Nurse Practitioner Family; PCP Physician Assistant
DX: S93.401A Sprain of unspecified ligament of right ankle, initial encounter (principal); S96.911A Strain of unspecified muscle and tendon at ankle and foot level, right foot, initial encounter; W01.0XXA Fall on same level from slipping, tripping and stumbling without subsequent striking against object, initial encounter; I10 Essential (primary) hypertension; K21.9 Gastro-esophageal reflux disease without esophagitis; F31.9 Bipolar disorder, unspecified; F41.9 Anxiety disorder, unspecified; Z86.73 Personal history of transient ischemic attack (TIA), and cerebral infarction without residual deficits
CPT/HCPCS: 73610; 99213; G0463

== ENCOUNTER 2025-01-28 11:14 | Emergency (ER) | payer OTHER, SELFPAY ==
--- NOTE | ~2025-01-28 | XR_ITS ---
HISTORY: pain, injury COMPARISON: None TECHNIQUE: 2 views of the right tibia and fibula were performed FINDINGS: Redemonstration of an oblique spiral fracture of the distal fibular shaft with trace posterior displa cement of the distal fracture fragment Joint spaces are preserved and alignment is maintained. Soft tissues are unremarkable without radiopaque foreign body or significant calcification. Age-appropriate mineralization with multiple growth arrest lines along the distal shaft of the tibia. In addition, vertical lucencies are identified within the proximal metaphysis of the tibia, likely be nign, representing shadowing from the prominent tibial tuberosity. IMPRESSION: Redemonstration of an oblique spiral fracture of the distal fibular shaft with trace pos terior displacement of the distal fracture fragment. Reviewed, dictated and finalized at location A. IMPRESSION: Redemonstration of an oblique spiral fracture of the distal fibula r shaft with trace posterior displacement of the distal fracture fragment.
--- NOTE | ~2025-01-28 | XR_ITS ---
EXAMINATION: XR ankle RT min 3V DATE: 01/28/2025 13:13 INDICATION: Right ankle pain post injury TECHNIQUE: Anteroposterior, oblique, mortise, and lateral views of the right ankle were obtained. COMPARISON: None. FINDINGS: Nondisplaced oblique fracture of the lateral malleolus which exits the medial cortex at the level of the tibiotalar joint line. No other fractures identified. Joint spaces appear relatively preserved. S mall plantar calcaneal spur. A few tiny enthesopathic ossicles at the distal Achilles tendon. No ankl e joint effusion. Soft tissue swelling about the lateral malleolus. IMPRESSION: 1. Minimally displaced oblique right lateral malleolus fracture. Reviewed, dictated and finalized at location A.
--- NOTE | ~2025-01-28 | XR_ITS ---
HISTORY: continued pain, injury COMPARISON: 01/22/2025 TECHNIQUE: 3 views of the right ankle were performed FINDINGS: Redemonstration of lateral soft tissue swelling, increased from prior.. A spiral fracture of the distal right fibula is identified, now with minimal displacement rendering t his fracture more prominent on today's study than on the previous examination. No additional fractures are appreciated on the current study. Multiple dense transverse lines are detected within the distal shaft of the tibia suggesting prior ep isodes of growth arrest. Cortical irregularity is identified within the calcaneus, suggesting prior fracture deformity. A small calcaneal spur is noted. The ankle mortise is preserved. Bone mineralization is otherwise age-appropriate. IMPRESSION: Spiral minimally displaced fracture of the distal fibula shaft with overlying soft tissu e swelling. If additional (possible tendonous) injury is suspected, cross-sectional imaging (noncontrast enhanced MRI) is recommended for further evaluation. Reviewed, dictated and finalized at location A. IMPRESSION: Spiral minimally displaced fracture of the distal fibula shaft wit h overlying soft tissue swelling. If additional (possible tendonous) injury is suspected, cross-sectional imaging (noncontrast enhanced MRI) is recommended for further evaluation.
--- NOTE | 2025-01-28 11:21 | ED_ITS ---
HPI - General Adult General Chief complaint: Extremity Injury, Lower Stated complaint: fall Time Seen by Provider: 01/28/25 11:18 Source: patient Mode of arrival: ambulatory Limitations: no limitations History of Present Illness HPI narrative: Pt is a 50 y/o female presenting with c/o R. ankle pain. Pt reports injury several days ago resulting in injury to the R. ankle. Was evaluated here and found to have no acute bony abnormality on plain films. States since that visit, she tripped, reached for her 22 y/o daughter for assistance and pulled her down on top of her R. lower leg. Pt reports continued pain to the R. ankle and pain to the R. lower leg. 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 Denies striking her head. Denies LOC. Denies feeling dizzy or lightheaded prior to fall. Denies neck or back pain. Denies paresthesias. No additional complaints. Related Data Home Medications ?Medication ?Instructions ?Recorded ?Confirmed ?Last Taken ?Type lamotrigine 100 mg tablet 100 mg BID 10/18/19 05/12/24 Unknown History hydrochlorothiazide 12.5 mg capsule 12.5 mg PO DAILY 03/25/20 01/16/25 Unknown History lisinopril 10 mg tablet 10 mg PO DAILY 03/25/20 01/16/25 Unknown History latanoprost 0.005 % eye drops 1 drp EACH EYE HS 07/21/21 05/12/24 Unknown History sumatriptan succinate 50 mg tablet 50 mg PO DIRECTED 07/31/21 05/12/24 Unknown History hydroxyzine pamoate 25 mg capsule 25 mg PO DAILY 05/30/22 05/12/24 Unknown History phentermine 37.5 mg tablet 37.5 mg DIRECTED 04/24/23 05/12/24 Unknown History sertraline 100 mg tablet 100 mg PO DIRECTED 01/24/24 01/16/25 Unknown History triamcinolone acetonide 0.1 % 0.1 applic topical DIRECTED 04/25/24 05/12/24 Unknown History topical ointment cyclobenzaprine 10 mg tablet 10 mg 01/16/25 Unknown History omeprazole 20 mg capsule,delayed mg 01/16/25 Unknown History release Allergies Allergy/AdvReac Type Severity Reaction Status Date / Time adhesive Allergy Mild Rash Verified 01/28/25 11:33 Cat Dander Allergy Mild Watery Eye Uncoded 01/28/25 11:33 Review of Systems Review of Systems: CONSTITUTIONAL: Denies body aches, fever, chills, or sweats. EYES: Denies visual changes, redness, or discharge. ENT: Denies rhinorrhea, congestion, sore throat, or otalgia. CARDIOVASCULAR: Denies chest pain, palpitations, or edema. RESPIRATORY: Denies cough or dyspnea. GASTROINTESTINAL: Denies abdominal pain, nausea, vomiting, or diarrhea. GENITOURINARY: Denies dysuria or hematuria. SKIN: Denies rash, itching, or wounds. MUSCULOSKELETAL: Reports pain to R. ankle, R. lower leg. Denies back pain, joint pain, or myalgia. NEUROLOGIC: Denies headache, numbness, tingling, or weakness. PSYCH: Denies depression or anxiety. All systems reviewed & are unremarkable except as noted in HPI and below PMFSH Past Medical History Medical History History of abnormal cervical Pap smear delivery delivered Hx-TIA (transient ischemic attack) Anxiety Bipolar 1 disorder Hypertension H/O gastroesophageal reflux (GERD) Depression Surgical History Surgical History Hx of appendectomy History of orthopedic surgery 09/27/23 R arm H/O gynecological procedure ovary removed pt does not remember when 2015 Paragard insertion No pertinent past surgical history Family History Family History Mother Family history non-contributory Social History Social History Smoking status: Never smoker Alcohol intake: current Alcohol use details: rarely Substance use: never Substance use type: does not use Do You Feel Safe in your Home?: Yes Lack of Transportation: No Lack of Food: Never True Current Housing: I Have Housing Concerned About Future Housing: No Difficulty Paying Gas/Electric Bills: No Difficulty Paying for Meds: No Currently Unemployed: No Education: Bachelor's Degree Difficulty w/ Childcare or Family Care: No Living arrangements: with family Additional living arrangements comments: children Occupation/Education: 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 HEAD: Normocephalic, atraumatic. EYES: EOMI. No redness or drainage. Conjunctivae normal. ENT: Mucous membranes pink and moist. NECK: Normal AROM. Supple. CHEST: No respiratory distress. HEART: Normal rate Normal peripheral pulses. EXTREMITIES: Normal range of motion--reports pain with ALL ROM. Mild edema noted to the R. foot, lateral aspect of R. ankle. TTP over the lateral aspect of the R. ankle, anterior aspect of the R. lower leg (distal tib/fib). +DNVI SKIN: Yellow/green ecchymosis noted to the R. foot, extending group home up the R. lower leg. Warm, dry, no rash. Capillary refill normal. Normal skin turgor. NEURO: No focal deficits. Alert and oriented x3.Ambulatory with crutches PSYCH: Normal affect. No signs of depression or anxiety. Course Course Level of Care: Express Care Visit Vital Signs Vital signs: Vital Signs Temperature 97.7 F 01/28/25 11:31 Pulse Rate 124 H 01/28/25 11:31 Respiratory Rate 20 01/28/25 11:31 Blood Pressure 131/86 01/28/25 11:31 Pulse Oximetry 97 01/28/25 11:31 Oxygen Delivery Room Air 01/28/25 11:31 Temperature 97.7 F 01/28/25 11:31 Pulse Rate 124 H 01/28/25 11:31 Respiratory Rate 20 01/28/25 11:31 Blood Pressure 131/86 01/28/25 11:31 Pulse Oximetry 97 01/28/25 11:31 Oxygen Delivery Room Air 01/28/25 11:31 Procedures Orthopedic Splinting/Casting Injury #1: Splinting/Casting Date: 01/28/25 Splinting/Casting Time: 12:35 Side: right Lower Extremity Injury Location: lower leg Lower Extremity Immobilizer: stirrup splint Splint: customized in ED Pre-Procedure Neuro Vascular Exam: normal Post-Procedure Neuro Vascular Exam: normal Other Orthopedic Equipment: crutches (already had prior to this visit) Medical Decision Making Vital Signs Vital Signs: Vital Signs Temperature 97.7 F 01/28/25 11:31 Pulse Rate 124 H 01/28/25 11:31 Respiratory Rate 20 01/28/25 11:31 Blood Pressure 131/86 01/28/25 11:31 Pulse Oximetry 97 01/28/25 11:31 Oxygen Delivery Room Air 01/28/25 11:31 Temperature 97.7 F 01/28/25 11:31 Pulse Rate 124 H 01/28/25 11:31 Respiratory Rate 20 01/28/25 11:31 Blood Pressure 131/86 01/28/25 11:31 Pulse Oximetry 97 01/28/25 11:31 Oxygen Delivery Room Air 01/28/25 11:31 Imaging Data Attestation: I personally reviewed and interpreted this imaging study as follows: My impression: displaced fracture of fibula--this was also present on films taken 01/22 Radiologist's impression: [facility] [address] [place] [address] XRay Report Signed Patient: Brianda Mahan : 1975 MR#: [id number] Age: 50 Acct:[id number] Loc: [facility] ADM Date: 01/28/25Attending Dr: Ordering Physician: Fly Carlson APN Date of Service: 01/28/25 Procedure(s): XR ankle LT min 3V Accession Number(s): [id number] cc: CHILD LIFE THERAPIST PHYSICIAN; Fly Carlson APN~ HISTORY: continued pain, injury COMPARISON: 01/22/2025 TECHNIQUE: 3 views of the right ankle were performed FINDINGS: Redemonstration of lateral soft tissue swelling, increased from prior.. A spiral fracture of the distal right fibula is identified, now with minimal displacement rendering this fracture more prominent on today's study than on the previous examination. No additional fractures are appreciated on the current study. Multiple dense transverse lines are detected within the distal shaft of the tibia suggesting prior episodes of growth arrest. Cortical irregularity is identified within the calcaneus, suggesting prior fracture deformity. A small calcaneal spur is noted. The ankle mortise is preserved. Bone mineralization is otherwise age-appropriate. IMPRESSION: Spiral minimally displaced fracture of the distal fibula shaft with overlying soft tissue swelling. If additional (possible tendonous) injury is suspected, cross-sectional imaging (noncontrast enhanced MRI) is recommended for further evaluation. Discharge Plan Discharge Clinical Impression: Pain in right lower leg, Fall on same level from tripping, Elevated blood pressure reading in office without diagnosis of hypertension, Fracture of fibula Patient Disposition: Home Condition: Stable Instructions: Ankle Fracture (DC) Additional Instructions: Go straight to ER should your symptoms become worse or should any new symptoms develop Patient Language: Vietnamese Prescriptions: New hydrocodone-acetaminophen 5-325 mg tablet 1 tablet PO Q6-8H PRN (Reason: pain) Qty: 10 0RF ibuprofen 600 mg tablet 600 mg PO Q6H PRN (Reason: pain) Qty: 30 0RF No Action lisinopril 10 mg Tablet 10 mg PO DAILY hydrochlorothiazide 12.5 mg Capsule 12.5 mg PO DAILY latanoprost 0.005 % drops 1 drp EACH EYE HS triamcinolone acetonide 0.1 % ointment 0.1 applic TOPICAL DIRECTED cyclobenzaprine 10 mg tablet 10 mg omeprazole 20 mg capsule,delayed release(DR/EC) naproxen 500 mg tablet 500 mg PO BID PRN (Reason: pain) 7 Days Qty: 14 0RF hydroxyzine pamoate 25 mg capsule 25 mg PO DAILY lamotrigine 100 mg tablet 100 mg BID phentermine 37.5 mg tablet 37.5 mg DIRECTED sertraline 100 mg tablet 100 mg PO DIRECTED sumatriptan succinate 50 mg tablet 50 mg PO DIRECTED estradiol 0.01 % (0.1 mg/gram) cream 1 g vaginal 2XW Qty: 42.5 5RF Rx Instructions: twice weekly Follow-up/Referrals: PHYSICIAN,CHILD LIFE THERAPIST [Primary Care Provider] - 01/29/25 Rober Cross MD [Physician] - 01/28/25 Stand Alone Forms: Work/School Release IP Time of Disposition: 12:34
[2025-01-28 11:31] VITALS: BP 131/86; PULSE 124; RESP 20; TEMP 36.5; O2SAT 97
== END 2025-01-28 13:00 | disposition home or self-care (01) ==
PROVIDERS: Emergency Provider Registered Nurse
DX: S82.441A Displaced spiral fracture of shaft of right fibula, initial encounter for closed fracture (principal); W01.0XXA Fall on same level from slipping, tripping and stumbling without subsequent striking against object, initial encounter; I10 Essential (primary) hypertension; K21.9 Gastro-esophageal reflux disease without esophagitis; F31.9 Bipolar disorder, unspecified; F41.9 Anxiety disorder, unspecified; Z86.73 Personal history of transient ischemic attack (TIA), and cerebral infarction without residual deficits
CPT/HCPCS: 29515; 73590; 73610; 99214; G0463

== ENCOUNTER 2025-02-05 10:11 | Outpatient (CLI) | payer OTHER, SELFPAY ==
--- OUTSIDE RECORDS SUMMARY | 2025-02-05 10:19 | XMS_ITS | Clinical Summary ---
Author Organization [facility] Address [address] [place] [address] Care Team Providers Care Facility Mechanic Name Role Phone Stephen Fregoso MD Primary Care Provider [phone] Immunizations Immunization Administration Dates Next Due MODERNA COVID-19 (12+) MRNA, LNP-S, PF, 100 MCG/ 0.5 ML DOSE 09/03/2020,08/06/2020 Social History Tobacco Use Types Packs/Day Years Used Date Smoking Tobacco: Never Assessed Comments Unknown Sex and Gender Information Value Date Recorded Sex Assigned at Not on file Legal Sex Female 8:27 PM CDT Gender Identity Not on file Sexual Orientation Not on file Plan of Treatment Health Maintenance Due Date Last Done Comments Cervical Cancer Screening Pa p Smear (Age 30 to 64) Every 3 Years 1975 Colorectal Cancer Screening Colonoscopy (10 Years) 1975 Annual Physical 01/14/1979 Hepatitis C 01/14/1994 DTaP, Tdap and Td Vaccines ( 1 - Tdap) 01/14/1995 Hepatitis B Vaccines (1 of 3 - 19+ 3-dose series) 01/14/1995 Cervical Cancer Screening Pa p with HPV Testing (Age 30 to 64) Every 5 Years 01/14/2006 Cervical Cancer Screening [facility] HPV 01/14/2006 Mammogram Screening 2016 COVID-19 Vaccine (2023-2 5 season) 2024 09/03/2020, 08/06/2020 Meningococcal B Vaccine Aged Out No l onger eligible based on patient's age to complete this topic Meningococcal Vaccine Aged Out No surjit brennan eligible based on patient's age to complete this topic Pneumococcal Vaccine: Pediatrics (0 to 5 Years) and At-Risk Patients (6 to 49 Years) Aged Out No longer eligible b ased on patient's age to complete this topic RSV Immunizations Under 20 Months Aged Out No longer eligible b ased on patient's age to complete this topic Care Teams Facility Mechanic Relationship Specialty Start Date End Date Stephen Fregoso MD [address] [place] [address] PCP - General 11/27/13
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
[2025-02-06 07:09] LABS: FSH 46.0 mIU/mL (.); LH 60.0 mIU/mL (.)
[2025-02-12 15:09] LABS: Estradiol, Sensitive 5.7 pg/mL (.)
== END 2025-02-05 10:12 | disposition home or self-care (01) ==
LOC: ANHGOSHLAB 10:11
PROVIDERS: Visit Provider Obstetrics & Gynecology
DX: R23.2 Flushing (principal)
CPT/HCPCS: 82166; 82670; 83001; 83002; 84144